=== PATIENT | female | born 1980 | race Caucasian/White ===

== ENCOUNTER 2016-07-24 11:43 | Emergency (ER) | payer OTHER ==
[2016-07-24 11:52] VITALS: BP 115/85; PULSE 86; TEMP 98; BMI 25.0
--- NOTE | 2016-07-24 12:42 | PDOC ---
History of Present Illness - General Chief Complaint: Pain, Acute Stated Complaint: LOWER BACK PAIN, POSSIBLE Time Seen by Provider: 07/24/16 12:30 History Source: Patient Exam Limitations: No Limitations - History of Present Illness Travel History: No Initial Comments: 07/24/16 12:30 C/o low back and liower abd cramping and question about early . Patient states last normal menstrual cycle was in April, had 2 periods in May last one being June 05. 5 para 5, states to call test which was positive. Was concerned about this as patient has recently one year ago had extensive spinal surgery for disc fusions and was uncertain as to safety of a postoperatively. Patient denies fever, nausea vomiting diarrhea constipation, denies vaginal drainage or bleeding. States has some frequency with urine, and also uncertain as to possible UTI. 07/24/16 13:37 Timing/Duration: reports: getting worse, changing over time Quality: reports: mild, cramping, fullness Pain Radiation: reports: no radiation Activities at Onset: reports: none Past History - Travel Traveled outside of the country in the last 30 days: No Close contact w/someone who was outside of country & ill: No - Past Medical History Allergies/Adverse Reactions: Allergies Allergy/AdvReac Type Severity Reaction Status Date / Time No Known Allergies Allergy Verified 07/24/16 11:47 Home Medications: Ambulatory Orders NK [No Known Home Medication] 07/24/16 Other medical history: denies - Psycho/Social/Smoking Cessation Hx Suicidal Ideation: No Smoking History: Never smoked Review of Systems - Review of Systems Able to Perform ROS?: Yes Is the patient limited [place] Irish proficient: Yes Constitutional: Yes: Symptoms Reported, See HPI, Malaise. No: Fever HEENTM: No: Symptoms Reported ABD/GI: Yes: Symptoms Reported, Abdominal cramping. No: Diarrhea, Poor Appetite , Poor Fluid Intake, Vomiting : Yes: Symptoms Reported, See HPI, Frequency. No: Burning, Dysuria Neurological: Yes: See HPI. No: Symptoms reported All Other Systems: Reviewed and Negative *Physical Exam - Vital Signs Last Vital Signs Temp Pulse Resp BP Pulse Ox 98.0 F 86 16 115/85 100 07/24/16 11:47 07/24/16 11:47 07/24/16 11:47 07/24/16 11:47 07/24/16 11:47 - Physical Exam General Appearance: Yes: Nourished, Appropriately Dressed, Apparent Distress, Mild Distress HEENT: positive: Normal ENT Inspection, TMs Normal Neck: positive: Supple. negative: Tender, Lymphadenopathy (R), Lymphadenopathy (L) Respiratory/Chest: positive: Lungs Clear, Normal Breath Sounds Cardiovascular: positive: Regular Rate Gastrointestinal/Abdominal: positive: Normal Bowel Sounds, Tender (mild suprapubic tenderness), Soft, Tenderness. negative: Distended, Guarding, Rebound Extremity: positive: Normal Capillary Refill, Normal Inspection Integumentary: positive: Normal Color, Dry, Warm, Pale Neurologic: positive: washery boss II-XII NML intact, Fully Oriented, Alert, Normal Mood/ Affect, Normal Response, Motor Strength 5/5 Progress Note - Progress Note Progress Note: Early , urinary tract without evidence of infection. We'll treat conservatively and send culture. Patient understands will be notified if urine culture comes back with positive result. Otherwise will follow-up with Dr. Fountain or DOPSTER for care *DC/Admit/Observation/Transfer Diagnosis at time of Disposition: Early stage of - Discharge Dispostion Disposition: HOME Condition at time of disposition: Stable Admit: No - Referrals Referrals: Adiel Fountain MD [Staff Physician] - - Patient Instructions Printed Discharge Instructions: DI for Abdominal Pain -- Early Additional Instructions: Rest, drink lots of fluids: Teas, water, soups Cori tiburcio, carbonated beverages for the bubbles May try peppermint teas Avoid heavy , spicy or fatty foods until symptoms have resolved Continue [id number] medications for symptomatic relief Tylenol for fever and pain Followup with private physician in one to 2 days as needed Return to emergency department for worsened symptoms, fevers, dehydration - Post Discharge Activity Work/School Note: Back to Work
[2016-07-24 12:53] LABS: URINE APPEARANCE SLCLOUDY; URINE BILIRUBIN NEGATIVE (NEGATIVE); URINE BLOOD NEGATIVE (NEGATIVE); URINE COLOR YELLOW; URINE GLUCOSE (UA) NEGATIVE (NEGATIVE); URINE KETONE NEGATIVE (NEGATIVE); URINE LEUK ESTERASE NEGATIVE (NEGATIVE); URINE NITRITE NEGATIVE (NEGATIVE); URINE PROTEIN NEGATIVE (NEGATIVE); URINE UROBILINOGEN NEGATIVE E.U./dl (0.2-1.0)
== END 2016-07-24 13:23 | disposition home or self-care (01) ==
LOC: JER 11:43
DX: O26.891 Other specified pregnancy related conditions, first trimester (principal); Z3A.01 Less than 8 weeks gestation of pregnancy
CPT/HCPCS: 81003; 84703; 87086; 99282-25

== ENCOUNTER 2017-03-12 08:35 | Inpatient (IN) | payer OTHER ==
[2017-03-12] MEDS ORDERED: AMPICILLIN - 100 ML IVPB ONE (09:00)
[2017-03-12 09:28] LABS: BASOPHIL 0.7 % (0-2.0); EOSINOPHIL 1.2 % (0-4.5); MCH 28.6 pg (25.7-33.7); MCHC 33.1 g/dl (32.0-36.0); MEAN CELL VOLUME 86.4 fl (80-96); NEUTROPHILS 71.7 % (42.8-82.8); PLATELET COUNT 295 K/MM3 (134-434); RDW 15.4 % (11.6-15.6); WHITE BLOOD COUNT 9.3 K/mm3 (4.0-10.0)
--- NOTE | 2017-03-12 09:40 | HP ---
Past Medical History - Admission Chief Complaint: Labor pain History of Present Illness: 36 yo @ 40 weeks gestation, admitted for labor pain. She denies any rupture of membrane or vaginal bleeding. History Source: Patient Limitations to Obtaining History: No Limitations - Past Medical History ...: 6 ...Para: 5 ...EDC by Jennifer: 03/12/17 - Past Surgical History Past Surgical History: Yes: None Hx Myomectomy: No Hx Transabdominal Cerclage: No - Smoking History Smoking history: Never smoked - Alcohol/Substance Use Hx Alcohol Use: No History of Substance Use: reports: None - Social History Usual Living Arrangement: Yes: With Spouse History of Recent Travel: No Home Medications - Allergies Allergies/Adverse Reactions: Allergies Allergy/AdvReac Type Severity Reaction Status Date / Time No Known Allergies Allergy Verified 03/10/17 09:21 - Home Medications Home Medications: Ambulatory Orders Vitamins (Sjr) - 1 tab PO DAILY 01/29/17 Family Disease History - Family Disease History Family History: Unremarkable Review of Systems - Review of Systems Constitutional: reports: No Symptoms Eyes: reports: No Symptoms HENT: reports: No Symptoms Neck: reports: No Symptoms Cardiovascular: reports: No Symptoms Respiratory: reports: No Symptoms Gastrointestinal: reports: No Symptoms Genitourinary: reports: Pain Breasts: reports: No Symptoms Reported Musculoskeletal: reports: No Symptoms Integumentary: reports: No Symptoms Neurological: reports: No Symptoms Endocrine: reports: No Symptoms Hematology/Lymphatic: reports: No Symptoms Psychiatric: reports: No Symptoms Pain Intensity: 9 Physical Exam - Maternity Constitutional: Yes: Well Nourished Eyes: Yes: WNL HENT: Yes: WNL Neck: Yes: Supple Cardiovascular: Yes: Regular Rate and Rhythm Lungs: Clear to auscultation Breast(s): Yes: WNL - Abdominal Exam/OB Number of Fetuses: Single Presentation: Vertex Contractions: Yes Regularity: Regular Intensity: Mod/Strong Decelerations: None - Vaginal Exam/OB Dilatation (cm): 6 Effacement (%): 100 Station: -1 - Physical Exam ...Motor Strength: WNL Psychiatric: Yes: Alert, Oriented - Labs Lab Results: CBC, BMP 03/12/17 09:15 Problem List - Problems (1) Pain during labor Code(s): O99.89 - OTH DISEASES AND CONDITIONS COMPL PREG/CHLDBRTH R52 - PAIN, UNSPECIFIED (2) Status post vaginal delivery Code(s): JFL6734 - Assessment/Plan Active labor Admit to L&D Anticipate
[2017-03-12] MEDS ORDERED: DEXTROSE 5%-LACTATED RINGERS 1,000 ML IV SCH ×2 (09:45)
[2017-03-12 09:46] LABS: INR 1.01 (0.82-1.09); PROTHROMBIN TIME (PATIENT) 11.1 SEC (9.98-11.88)
[2017-03-12 09:49] LABS: ACTIVATED PTT 27.2 SECONDS (26.9-34.4)
[2017-03-12 09:50] LABS: ANION GAP 10 (8-16); CALCIUM 9.1 mg/dL (8.5-10.1); CO2 23 mmol/L (21-32); CREATININE 0.6 mg/dL (0.55-1.02); GLUCOSE,RANDOM 85 mg/dL (74-106)
[2017-03-12 10:07] VITALS: BMI 45.1
[2017-03-12] MEDS ORDERED: METHYLERGONOVINE MALEATE 0.2 MG/1 ML AMP IM PRN (10:10)
[2017-03-12] MEDS ORDERED: BENZOCAINE 28 GM HEMORRHOIDAL OINTMENT TP PRN (10:10)
[2017-03-12] MEDS ORDERED: BENZOCAINE 20% 57 GM BOTTLE TP PRN (10:10)
[2017-03-12] MEDS ORDERED: WITCH HAZEL 50% (TUCKS) 40 PAD/JAR PAD TP PRN (10:10)
[2017-03-12] MEDS ORDERED: BISACODYL 10 MG SUPP.RECT RC PRN (10:10)
--- NOTE | 2017-03-12 10:14 | PN ---
Delivery - Delivery Vaginal Delivery: Spontaneous Episiotomy/Laceration: 2nd degree EBL (cc): 350 Delivery, Single - [place] Feeding Plan Initial Plan: Elected not to breastfeed exclusively throughout hospitalization Remarks - Remarks Remarks: Normal spontaneous vaginal delivery of a live boy over second degree laceration. Nose / Oropharynx suctioned @ perineum. Cord clamped and cut. Placenta expelled spontaneously intact. Laceration repaired with 2.0 Chromic.
[2017-03-12] MEDS ORDERED: D5W-LR W/ 20 UNITS OXYTOCIN 1,000 ML IV SCH (10:15)
[2017-03-12] MEDS: IBUPROFEN 600 MG TABLET (FP) PO PRN ×2 (11:00→18:34)
[2017-03-12] MEDS ORDERED: TUBERCULIN PPD 5 TU/0.1ML SYRINGE (IN PATIENT USE ONLY) ID ONE (11:00)
[2017-03-12] MEDS: ACETAMINOPHEN 325 MG TABLET (FP) PO PRN ×2 (11:10→18:34)
[2017-03-12] MEDS ORDERED: OXYTOCIN 20 UNITS in 0.9% NS 1,000 ML IV SCH (11:45)
[2017-03-12] MEDS: FERROUS SO4 325 MG TABLET (FP) PO SCH ×2 (13:40→18:34)
[2017-03-12] MEDS: AMPICILLIN - 100 ML IVPB SCH (22:16)
[2017-03-13] MEDS: IBUPROFEN 600 MG TABLET (FP) PO PRN ×3 (02:39→21:54)
[2017-03-13] MEDS: ACETAMINOPHEN 325 MG TABLET (FP) PO PRN ×3 (02:40→21:54)
[2017-03-13 08:30] LABS: BASOPHIL 0.6 % (0-2.0); EOSINOPHIL 1.9 % (0-4.5); MCHC 33.3 g/dl (32.0-36.0); MEAN CELL VOLUME 87.1 fl (80-96); MEAN PLT VOLUME 8.1 fl (7.5-11.1); NEUTROPHILS 66.6 % (42.8-82.8); PLATELET COUNT 277 K/MM3 (134-434); RDW 15.4 % (11.6-15.6); WHITE BLOOD COUNT 10.9 K/mm3 (4.0-10.0)
[2017-03-13] MEDS: FERROUS SO4 325 MG TABLET (FP) PO SCH ×3 (09:26→17:11)
[2017-03-13] MEDS: PRENATAL VITAMINS W/ FOLIC ACID TABLET (FP) PO SCH (09:26)
[2017-03-13] MEDS: AMPICILLIN - 100 ML IVPB SCH (11:01)
[2017-03-13] MEDS ORDERED: FLU VACC QS2017-18 36MOS UP/PF 60 MCG/0.5 ML SYRINGE IM ONE (12:00)
[2017-03-13] MEDS ORDERED: DIPHTH,PERTUSS(ACELL),TET 0.5 ML DISP.SYRIN IM ONE (12:00)
--- NOTE | 2017-03-13 21:06 | PN ---
Post Progress Note - Subjective Subjective: 36 yo Para 6, status post normal vaginal delivery, seen and evaluated. No complaints. Post Day: 1 Type of Delivery: Vital Signs: Vital Signs Temperature 97.9 F 03/13/17 10:00 Pulse Rate 92 H 03/13/17 10:00 Respiratory Rate 20 03/13/17 10:00 Blood Pressure 122/77 03/13/17 10:00 O2 Sat by Pulse Oximetry (%) Breast Exam: Yes: Soft Uterus: Yes: Fundus Firm Abdomen/GI: Yes: Abdomen soft Lochia: Yes: Rubra Lochia, amount: Moderate Extremities: Yes: Calves non-tender Perineum: Yes: Intact Activity: Ambulating - Labs Labs: CBC WBC 10.9 K/mm3 (4.0-10.0) H 03/13/17 08:00 RBC 3.55 M/mm3 (3.60-5.2) L 03/13/17 08:00 Hgb 10.3 GM/dL (10.7-15.3) L D 03/13/17 08:00 Hct 30.9 % (32.4-45.2) L 03/13/17 08:00 MCV 87.1 fl (80-96) 03/13/17 08:00 MCH 29.0 pg (25.7-33.7) 03/13/17 08:00 MCHC 33.3 g/dl (32.0-36.0) 03/13/17 08:00 RDW 15.4 % (11.6-15.6) 03/13/17 08:00 Plt Count 277 K/MM3 (134-434) 03/13/17 08:00 MPV 8.1 fl (7.5-11.1) 03/13/17 08:00 Neutrophils % 66.6 % (42.8-82.8) 03/13/17 08:00 Lymphocytes % 24.4 % (8-40) D 03/13/17 08:00 Monocytes % 6.5 % (3.8-10.2) 03/13/17 08:00 Eosinophils % 1.9 % (0-4.5) 03/13/17 08:00 Basophils % 0.6 % (0-2.0) 03/13/17 08:00 Problem List - Problems (1) Pain during labor Code(s): O99.89 - OTH DISEASES AND CONDITIONS COMPL PREG/CHLDBRTH R52 - PAIN, UNSPECIFIED (2) Status post vaginal delivery Code(s): TBL6991 - Assessment/Plan Status post vaginal delivery Stable Continue care
[2017-03-13] MEDS ORDERED: SENNOSIDES/DOCUSATE COMBO (SENNA PLUS) TABLET (UD) PO PRN (22:00)
[2017-03-14] MEDS: FERROUS SO4 325 MG TABLET (FP) PO SCH ×2 (08:00→12:01)
--- NOTE | 2017-03-14 08:30 | DS ---
Physical Exam-PRECISION INSTRUMENT AND TOOL MAKER Vital Signs: Vital Signs Temperature 99.2 F 03/13/17 22:00 Pulse Rate 80 03/13/17 22:00 Respiratory Rate 20 03/13/17 22:00 Blood Pressure 136/86 03/13/17 22:00 O2 Sat by Pulse Oximetry (%) Constitutional: Yes: Well Nourished, No Distress, Calm Eyes: Yes: WNL, Conjunctiva Clear, EOM Intact HENT: Yes: WNL, Atraumatic, Normocephalic Neck: Yes: WNL, Supple, Trachea Midline Cardiovascular: Yes: WNL, Regular Rate and Rhythm Respiratory: Yes: WNL, Regular, CTA Bilaterally Gastrointestinal: Yes: WNL ...Rectal Exam: Yes: WNL Renal/: Yes: WNL ....Post : Yes: Uterus firm, Uterus non-tender, Slight lochia rubra Breast(s): Yes: WNL Musculoskeletal: Yes: WNL Extremities: Yes: WNL Edema: No Integumentary: Yes: WNL Neurological: Yes: WNL, Alert, Oriented ...Motor Strength: WNL Psychiatric: Yes: WNL, Alert, Oriented Labs: CBC, BMP 03/13/17 08:00 03/12/17 09:15 Delivery - Delivery Vaginal Delivery: Spontaneous Type of Anesthesia: Local Episiotomy/Laceration: 2nd degree EBL (cc): 350 Delivery, Single - Stages of Labor Date 1st Stage Initiatied: 03/12/17 Time 1st Stage Initiated: 06:00 Date 2nd Stage Initiated: 03/12/17 Time 2nd Stage Initiated: 09:40 Date of Delivery: 03/12/17 Time of Delivery: 09:46 Time Placenta Delivered: 09:50 Placenta: Yes: Spontaneous - Condition of Drawer Waxer/Regional Project Manager Present: Yes Name: Marin Kinney Infant Gender: Male Weight: 9 lb 12 oz Position: Left, OA Total Hours ROM (Hrs/Mins): 46min - 1 Minute Total Score: 9 5 Minutes Total Score: 9 - Feeding Plan Initial Plan: Elected not to breastfeed exclusively throughout hospitalization Discharge Summary Reason For Visit: LABOR Current Active Problems Pain during labor (Acute) Status post vaginal delivery (Acute) Procedures: Principal: Condition: Good - Instructions Diet, Activity, Other Instructions: regular diet, follow up [facility] care 4 weeks Disposition: HOME - Home Medications Comprehensive Discharge Medication List: Ambulatory Orders Vitamins (Sjr) - 1 tab PO DAILY 01/29/17 Ibuprofen [Motrin -] 600 mg PO QID #28 tablet 03/14/17
[2017-03-14 09:48] VITALS: BP 119/65; PULSE 93; TEMP 97.9
[2017-03-14] MEDS: PRENATAL VITAMINS W/ FOLIC ACID TABLET (FP) PO SCH (10:17)
[2017-03-14] MEDS: IBUPROFEN 600 MG TABLET (FP) PO PRN (10:20)
[2017-03-14] MEDS: ACETAMINOPHEN 325 MG TABLET (FP) PO PRN (10:21)
== END 2017-03-14 15:40 | disposition home or self-care (01) | DRG 560 ==
LOC: JLDR 08:35 → J3W 11:46
PROVIDERS: ADMIT Obstetrics & Gynecology; ATTEND Obstetrics & Gynecology
PROC: 10E0XZZ Delivery of Products of Conception, External Approach (ICD-10-PCS; principal; 2017-03-12)
PROC: 0KQM0ZZ Repair Perineum Muscle, Open Approach (ICD-10-PCS; 2017-03-12)
DX: O48.0 Post-term pregnancy (principal); O70.1 Second degree perineal laceration during delivery; O26.893 Other specified pregnancy related conditions, third trimester; R76.11 Nonspecific reaction to tuberculin skin test without active tuberculosis; Z3A.40 40 weeks gestation of pregnancy; Z37.0 Single live birth
CPT/HCPCS: 36415; 59409; 71010-TC; 80048; 85025; 85610; 85730; 86593; 86850; 86900; 86901; 90686; 90715; G0008

== ENCOUNTER 2018-03-30 14:20 | Emergency (ER) | payer OTHER ==
[2018-03-30 14:27] VITALS: BP 122/66; PULSE 93; TEMP 97.7; BMI 42.9
--- NOTE | 2018-03-30 14:32 | PDOC ---
Rapid Medical Evaluation Chief Complaint: Urinary Problem Time Seen by Provider: 03/30/18 14:28 Medical Evaluation: Allergies Allergy/AdvReac Type Severity Reaction Status Date / Time No Known Allergies Allergy Verified 03/30/18 14:24 Vital Signs Temp Pulse Resp BP Pulse Ox 97.7 F 93 H 16 122/66 99 03/30/18 14:26 03/30/18 14:26 03/30/18 14:26 03/30/18 14:26 03/30/18 14:26 03/30/18 14:31 I have performed a brief in-person evaluation of this patient. The patient presents with a chief complaint of:22 weeks w/ ?dysuria, no vag bleed Pertinent physical exam findings:unremarkable I have ordered the following:ua/cx The patient will proceed to the ED for further evaluation. Discharge Disposition - Diagnosis Dysuria - Referrals - Patient Instructions - Post Discharge Activity
[2018-03-30 15:22] LABS: URINE APPEARANCE CLEAR; URINE BILIRUBIN NEGATIVE (<2.0 mg/dL); URINE COLOR STRAW; URINE GLUCOSE (UA) NEGATIVE (NEGATIVE); URINE KETONE NEGATIVE (NEGATIVE); URINE LEUK ESTERASE 2+ (NEGATIVE); URINE NITRITE NEGATIVE (NEGATIVE); URINE PROTEIN 1+ (NEGATIVE); URINE UROBILINOGEN NEGATIVE mg/dL (0.2-1.0)
[2018-03-30 15:34] LABS: EPI CELLS RARE /HPF (FEW)
--- NOTE | 2018-03-30 15:35 | PDOC ---
History of Present Illness - General Chief Complaint: Urinary Problem Stated Complaint: ABD PAIN (22 WKS ) Time Seen by Provider: 03/30/18 14:28 - History of Present Illness Initial Comments: 03/30/18 15:32 37-year-old 22 week gravid female presents for evaluation of dysuria times one day without associated symptoms. Past History - Past Medical History Allergies/Adverse Reactions: Allergies Allergy/AdvReac Type Severity Reaction Status Date / Time No Known Allergies Allergy Verified 03/30/18 14:24 Home Medications: Ambulatory Orders Vitamins (Sjr) - 1 tab PO DAILY 01/29/17 Nitrofurantoin Monohyd/M-Cryst [Macrobid -] 100 mg PO BID #14 capsule 03/30/18 Asthma: No Cancer: No Cardiac Disorders: No COPD: No Diabetes: No HTN: No Seizures: No Thyroid Disease: No - Reproductive History (#): 6 Para: 5 Spontaneous : 0 - Suicide/Smoking/Psychosocial Hx Smoking History: Never smoked Hx Alcohol Use: No Drug/Substance Use Hx: No Substance Use Type: None Hx Substance Use Treatment: No Review of Systems - Review of Systems : Yes: See HPI, Burning, Dysuria, Urgency All Other Systems: Reviewed and Negative *Physical Exam - Vital Signs Last Vital Signs Temp Pulse Resp BP Pulse Ox 97.7 F 93 H 16 122/66 99 03/30/18 14:26 03/30/18 14:26 03/30/18 14:26 03/30/18 14:26 03/30/18 14:26 - Physical Exam Comments: 03/30/18 15:33 HEAD: NC/AT EYES: Conjuntiva clear MS: Full ROM in all joints without edema NEUROLOGIC: No gross sensory or motor deficits, NVID SKIN: Normal color and temperature no lesions or rashes ED Treatment Course - ADDITIONAL ORDERS Additional order review: Laboratory Results 03/30/18 14:46 Urine Color Straw Urine Appearance Clear Urine pH 7.0 Ur Specific [place] 1.005 L Urine Protein 1+ H Urine Glucose (UA) Negative Urine Ketones Negative Urine Blood 2+ H Urine Nitrite Negative Urine Bilirubin Negative Urine Urobilinogen Negative Ur Leukocyte Esterase 2+ H *DC/Admit/Observation/Transfer Diagnosis at time of Disposition: Dysuria, UTI (urinary tract infection) during - Discharge Dispostion Disposition: HOME Condition at time of disposition: Stable Decision to Admit order: No - Prescriptions Prescriptions: Nitrofurantoin Monohyd/M-Cryst [Macrobid -] 100 mg PO BID #14 capsule - Referrals Referrals: Jeana Hairston MD [Staff Physician] - - Patient Instructions Printed Discharge Instructions: Urinary Tract Infection Additional Instructions: Please take the antibiotics as directed return to the emergency room should symptoms worsen or go unresolved and follow-up with your mlt and shirring machine operator in one to 2 days for further evaluation and treatment options. - Post Discharge Activity
== END 2018-03-30 15:37 | disposition home or self-care (01) ==
LOC: JERFT 14:20
DX: O23.42 Unspecified infection of urinary tract in pregnancy, second trimester (principal); Z3A.22 22 weeks gestation of pregnancy
CPT/HCPCS: 81003; 81015; 87086; 99281-25

== ENCOUNTER 2018-06-06 10:24 | Emergency (ER) | payer OTHER ==
[2018-06-06 12:10] VITALS: BP 116/62; PULSE 94; TEMP 97; BMI 43.1
--- NOTE | 2018-06-06 12:11 | PDOC ---
History of Present Illness - General Chief Complaint: Hemorrhoids Stated Complaint: PAIN Time Seen by Provider: 06/06/18 12:10 History Source: Patient - History of Present Illness Initial Comments: 06/06/18 12:27 38 year old 35 weeks female c/o rectal swelling/ hemorrhoid and dysuria x 3 days. denies frequency, oliguria, fever/ chills. Patient seen by L& D and cleared for discharge. denies fever/ chills. NVD, abdominal pain. 06/06/18 12:48 Past History - Past Medical History Allergies/Adverse Reactions: Allergies Allergy/AdvReac Type Severity Reaction Status Date / Time No Known Allergies Allergy Verified 06/06/18 12:10 Home Medications: Ambulatory Orders Vitamins (Sjr) - 1 tab PO DAILY 01/29/17 Cephalexin Monohydrate [Keflex -] 500 mg PO BID #20 capsule 06/06/18 Docusate Sodium [Colace] 100 mg PO BID PRN #30 capsule 06/06/18 Ferrous Sulfate [Iron] 325 mg PO TID 06/06/18 Hydrocortisone Acetate [Anusol Hc Suppository -] 25 mg RC BID PRN #28 supp.rect 06/06/18 Witch Rubi 50% (Tucks) [Tucks Witch Rubi Pads] 1 pad TP TID PRN #30 pad Asthma: No Cancer: No Cardiac Disorders: No COPD: No Diabetes: No HTN: No Seizures: No Thyroid Disease: No - Reproductive History (#): 6 Para: 5 Spontaneous : 0 - Suicide/Smoking/Psychosocial Hx Smoking History: Never smoked Hx Alcohol Use: No Drug/Substance Use Hx: No Substance Use Type: None Hx Substance Use Treatment: No Review of Systems - Review of Systems Able to Perform ROS?: Yes Is the patient limited Belarusian proficient: No Constitutional: No: Symptoms Reported, See HPI, Chills, Diaphoresis, Fever, Loss of Appetite, Malaise, Night Sweats, Weakness, Weight Stable, Unintentional Wgt. Loss, Unexplained wgt Loss, Other ABD/GI: Yes: Other : Yes: Other (hemorrhoids) *Physical Exam - Vital Signs Last Vital Signs Temp Pulse Resp BP Pulse Ox 97 F L 94 H 18 116/62 99 06/06/18 12:03 06/06/18 12:03 06/06/18 12:03 06/06/18 12:03 06/06/18 12:03 - Physical Exam Female Pelvic Exam: positive: normal external exam. negative: Bartholin mass, vaginal bleeding Gastrointestinal/Abdominal: positive: Other (gravid abdomen. no tenderness, + 3 external hemorrhoids, no bleeding or fissure noted) Moderate Sedation - Procedure Monitoring Vital Signs: Procedure Monitoring Vital Signs Temperature 97 F L 06/06/18 12:03 Pulse Rate 94 H 06/06/18 12:03 Respiratory Rate 18 06/06/18 12:03 Blood Pressure 116/62 06/06/18 12:03 O2 Sat by Pulse Oximetry (%) 99 06/06/18 12:03 Progress Note - Progress Note Progress Note: A: HEmorrhoids; UTI P: Medical Decision Making - Medical Decision Making 06/06/18 12:[address] Lopez + external hemorrhoids. advised to stool softerners ( colace) and anusol. Category C, Lidocaine applied to rectal area for immediate plain control 06/06/18 13:12 pain improved after lidocaine tp application. UA +nitrite will treat since symptomatic *DC/Admit/Observation/Transfer Diagnosis at time of Disposition: Hemorrhoids during in third trimester UTI (urinary tract infection) Qualifiers: Urinary tract infection type: acute cystitis Hematuria presence: without hematuria Qualified Code(s): N30.00 - Acute cystitis without hematuria - Discharge Dispostion Disposition: HOME - Prescriptions Prescriptions: Cephalexin Monohydrate [Keflex -] 500 mg PO BID #20 capsule Docusate Sodium [Colace] 100 mg PO BID PRN #30 capsule PRN Reason: Constipation Hydrocortisone Acetate [Anusol Hc Suppository -] 25 mg RC BID PRN #28 supp.rect PRN Reason: hemorrhoids Witch Rubi 50% (Tucks) [Tucks Witch Rubi Pads] 1 pad TP TID PRN #30 pad PRN Reason: rectal pain - Referrals - Patient Instructions Printed Discharge Instructions: DI for Hemorrhoids, DI for Urinary Tract Infection (UTI) Additional Instructions: drink plenty of fluids take medications as prescribed - Post Discharge Activity Forms/Work/School Notes: Back to Work
[2018-06-06] MEDS ORDERED: LIDOCAINE HCL 2% JELLY 10 ML CARTRIDGE PR ONE (12:34)
[2018-06-06] MEDS ORDERED: LIDOCAINE HCL 2% JELLY 10 ML CARTRIDGE ONE (12:36)
[2018-06-06] MEDS ORDERED: HYDROCORTISONE ACETATE 25 MG/SUPP.RECT PR ONE (12:41)
[2018-06-06 12:50] LABS: URINE APPEARANCE SLCLOUDY; URINE BILIRUBIN NEGATIVE (<2.0 mg/dL); URINE COLOR YELLOW; URINE GLUCOSE (UA) NEGATIVE (NEGATIVE); URINE KETONE NEGATIVE (NEGATIVE); URINE LEUK ESTERASE NEGATIVE (NEGATIVE); URINE NITRITE POSITIVE (NEGATIVE); URINE PROTEIN 2+ (NEGATIVE); URINE UROBILINOGEN NEGATIVE mg/dL (0.2-1.0)
[2018-06-06 13:13] LABS: EPI CELLS FEW /HPF (FEW); URINE BACTERIA RARE /hpf (NONE SEEN); URINE HYALINE CAST 2 /lpf; URINE MUCUS MANY
== END 2018-06-06 13:18 | disposition home or self-care (01) ==
LOC: JERFT 10:24
DX: O26.893 Other specified pregnancy related conditions, third trimester (principal); O23.33 Infections of other parts of urinary tract in pregnancy, third trimester; O22.43 Hemorrhoids in pregnancy, third trimester; Z3A.35 35 weeks gestation of pregnancy
CPT/HCPCS: 81003; 81015; 87086; 99281-25

== ENCOUNTER 2018-06-25 22:42 | Emergency (ER) | payer OTHER ==
[2018-06-25 22:47] VITALS: BMI 27.4
[2018-06-25] MEDS ORDERED: SODIUM CHLORIDE 1,000 ML IV STA (22:53)
--- NOTE | 2018-06-25 22:58 | PDOC ---
History of Present Illness - General Chief Complaint: Nausea/Vomiting Stated Complaint: VOMITING/DIARRHEA/35 WKS Time Seen by Provider: 06/25/18 22:47 History Source: Patient - History of Present Illness Initial Comments: 06/25/18 23:19 38 year old female with NVD x 1 day with intermittent abdominal cramping radiating down to the pelvis. patient is 35 weeks , denies vaginal bleeding, vaginal discharge. patient reports + sick contacts with gastroenteritis symptoms at home. Timing/Duration: reports: constant Past History - Past Medical History Allergies/Adverse Reactions: Allergies Allergy/AdvReac Type Severity Reaction Status Date / Time No Known Allergies Allergy Verified 06/26/18 01:02 Home Medications: Ambulatory Orders Ferrous Sulfate [Feosol] 325 mg PO DAILY 06/26/18 Vitamins (Sjr) - 1 tab PO DAILY 06/26/18 Asthma: No Cancer: No Cardiac Disorders: No COPD: No Diabetes: No HTN: No Seizures: No Thyroid Disease: No - Reproductive History (#): 6 Para: 5 Spontaneous : 0 - Suicide/Smoking/Psychosocial Hx Smoking History: Never smoked Have you smoked in the past 12 months: No Information on smoking cessation initiated: No Hx Alcohol Use: No Drug/Substance Use Hx: No Substance Use Type: None Hx Substance Use Treatment: No Review of Systems - Review of Systems Able to Perform ROS?: Yes Is the patient limited Urdu proficient: No Constitutional: No: Symptoms Reported, See HPI, Chills, Diaphoresis, Fever, Loss of Appetite, Malaise, Night Sweats, Weakness, Weight Stable, Unintentional Wgt. Loss, Unexplained wgt Loss, Other ABD/GI: Yes: Nausea, Vomiting, Abdominal cramping : No: Symptoms Reported, See HPI, Burning, Dysuria, Discharge, Frequency, Flank Pain, Hematuria, Incontinence, Pain, Urgency, Testicular Mass, Testicular Swelling, Lesions, Testicular Pain, Other *Physical Exam - Vital Signs Last Vital Signs Temp Pulse Resp BP Pulse Ox 97.3 F L 101 H 22 H 119/89 100 06/25/18 22:44 06/25/18 22:44 06/25/18 22:44 06/25/18 22:44 06/25/18 22:44 - Physical Exam General Appearance: Yes: Appropriately Dressed Cardiovascular: positive: Tachycardia Gastrointestinal/Abdominal: positive: Normal Bowel Sounds, Tender (epigastric tenderness, gravid abdomen), Soft Extremity: positive: Normal Capillary Refill, Normal Inspection, Normal Range of Motion Integumentary: positive: Dry, Warm, Pale, Other (dry lips) Neurologic: positive: Fully Oriented, Alert, Normal Mood/Affect Moderate Sedation - Procedure Monitoring Vital Signs: Procedure Monitoring Vital Signs Temperature 97.3 F L 06/25/18 22:44 Pulse Rate 101 H 06/25/18 22:44 Respiratory Rate 22 H 06/25/18 22:44 Blood Pressure 119/89 06/25/18 22:44 O2 Sat by Pulse Oximetry (%) 100 06/25/18 22:44 ED Treatment Course - LABORATORY CBC & Chemistry Diagram: 06/25/18 23:05 06/25/18 23:05 Medical Decision Making - Medical Decision Making 06/25/18 23:26 NVD liekly gastroenteritis. patient send to L&D for evaluation. IVF and zofran given in the ED 06/26/18 01:08 patient now feels better. cleared by L&D for discharge. will d/c home. 06/26/18 01:22 patient PO water. reports feeling better, will d/c home *DC/Admit/Observation/Transfer Diagnosis at time of Disposition: Gastroenteritis Abdominal pain during Qualifiers: Trimester: third trimester Qualified Code(s): O26.893 - Other specified related conditions, third trimester - Discharge Dispostion Disposition: HOME - Referrals - Patient Instructions Printed Discharge Instructions: DI for Vomiting -- Adult Additional Instructions: drink plenty of fluids start a BRAT (bananas, rice apples toast) diet. follow up with your doctor as soon as possible. return to the ER if symptoms worsen. - Post Discharge Activity
[2018-06-25] MEDS ORDERED: ONDANSETRON 4 MG/2 ML VIAL IVPUSH ONE (23:00)
[2018-06-25] MEDS ORDERED: ONDANSETRON 4 MG/2 ML VIAL ONE (23:17)
[2018-06-25 23:25] LABS: BASO % 0.3 % (0-2.0); EOS % 1.5 % (0-4.5); HEMATOCRIT 31.5 % (32.4-45.2); HEMOGLOBIN 10.9 GM/dL (10.7-15.3); LYMPH % 13.9 % (8-40); MCH 29.8 pg (25.7-33.7); MCHC 34.6 g/dl (32.0-36.0); MEAN CELL VOLUME 86.2 fl (80-96); MEAN PLT VOLUME 7.9 fl (7.5-11.1); MONO % 5.5 % (3.8-10.2); NEUT % 78.8 % (42.8-82.8); PLATELET COUNT 306 K/MM3 (134-434); RBC 3.65 M/mm3 (3.60-5.2); RDW 15.3 % (11.6-15.6)
[2018-06-26 00:01] LABS: ALBUMIN 2.6 g/dl (3.4-5.0); ALK PHOS 98 U/L (45-117); ANION GAP 7 MMOL/L (8-16); BILIRUBIN,TOTAL 0.8 mg/dL (0.2-1); BLOOD UREA NITROGEN 9 mg/dL (7-18); CHLORIDE 102 mmol/L (98-107); CO2 25 mmol/L (21-32); CREATININE 0.6 mg/dL (0.55-1.3); GLUCOSE,RANDOM 87 mg/dL (74-106); LIPASE 141 U/L (73-393); POTASSIUM 4.1 mmol/L (3.5-5.1); SGOT/AST 10 U/L (15-37); SGPT/ALT 10 U/L (13-61); SODIUM 134 mmol/L (136-145); TOT PROT 6.8 g/dl (6.4-8.2)
[2018-06-26 00:53] VITALS: BP 120/68; PULSE 91; TEMP 98
== END 2018-06-26 01:37 | disposition home or self-care (01) ==
LOC: JER 22:42
PROC: 3E0337Z Introduction of Electrolytic and Water Balance Substance into Peripheral Vein, Percutaneous Approach (ICD-10-PCS; principal; 2018-06-25)
PROC: 3E033GC Introduction of Other Therapeutic Substance into Peripheral Vein, Percutaneous Approach (ICD-10-PCS; 2018-06-25)
DX: O26.893 Other specified pregnancy related conditions, third trimester (principal); O99.613 Diseases of the digestive system complicating pregnancy, third trimester; K52.9 Noninfective gastroenteritis and colitis, unspecified; Z3A.35 35 weeks gestation of pregnancy
CPT/HCPCS: 36415; 80053; 83690; 85025; 99281-25; J7030

== ENCOUNTER 2018-07-17 09:30 | Inpatient (IN) | payer OTHER ==
[2018-07-17] MEDS ORDERED: BUTORPHANOL TARTRATE 1 MG/ML VIAL IVPB ONE (10:26)
[2018-07-17] MEDS ORDERED: PROMETHAZINE HCL 25 MG/1 ML VIAL IVPUSH ONE (10:26)
[2018-07-17] MEDS ORDERED: DEXTROSE 5%-LACTATED RINGERS 1,000 ML IV SCH (10:30)
[2018-07-17 10:33] VITALS: BMI 44.7
--- NOTE | 2018-07-17 10:34 | HP ---
Past Medical History - Admission Chief Complaint: Labor pain History of Present Illness: 38 yo @ 38.4 weeks gestation, EDC 07/27/18, admitted for labor pain. Upon admission she was 5cm dilated. History Source: Patient Limitations to Obtaining History: No Limitations - Past Medical History ...: 7 ...Para: 6 ...EDC by Jennifer: 07/27/18 - Past Surgical History Past Surgical History: Yes: None Hx Myomectomy: No Hx Transabdominal Cerclage: No - Smoking History Smoking history: Never smoked Have you smoked in the past 12 months: No - Alcohol/Substance Use Hx Alcohol Use: No History of Substance Use: reports: None - Social History History of Recent Travel: No Home Medications - Allergies Allergies/Adverse Reactions: Allergies Allergy/AdvReac Type Severity Reaction Status Date / Time No Known Allergies Allergy Verified 06/26/18 01:02 - Home Medications Home Medications: Ambulatory Orders Ferrous Sulfate [Feosol] 325 mg PO DAILY 06/26/18 Vitamins (Sjr) - 1 tab PO DAILY 06/26/18 Family Disease History - Family Disease History Family History: Unremarkable Review of Systems - Review of Systems Constitutional: reports: No Symptoms Eyes: reports: No Symptoms HENT: reports: No Symptoms Neck: reports: No Symptoms Cardiovascular: reports: No Symptoms Respiratory: reports: No Symptoms Gastrointestinal: reports: No Symptoms Genitourinary: reports: Pain Breasts: reports: No Symptoms Reported Musculoskeletal: reports: No Symptoms Integumentary: reports: No Symptoms Neurological: reports: No Symptoms Endocrine: reports: No Symptoms Hematology/Lymphatic: reports: No Symptoms Psychiatric: reports: No Symptoms Pain Intensity: 7 Physical Exam - Maternity Constitutional: Yes: Well Nourished Eyes: Yes: Conjunctiva Clear HENT: Yes: Atraumatic Neck: Yes: Supple Cardiovascular: Yes: Regular Rate and Rhythm Lungs: Clear to auscultation - Abdominal Exam/OB Number of Fetuses: Single Presentation: Vertex - Vaginal Exam/OB Dilatation (cm): 5 Effacement (%): 80 Presentation: Vertex/Position Station: -2 - Physical Exam Integumentary: Yes: WNL ...Motor Strength: WNL Psychiatric: Yes: Alert, Oriented Problem List - Problems (1) Pain during labor Code(s): O99.89 - OTH DISEASES AND CONDITIONS COMPL PREG/CHLDBRTH; R52 - PAIN, UNSPECIFIED Assessment/Plan 38 weeks gestation Active labor Analgesia as needed Anticipate
[2018-07-17 10:39] LABS: BASO % 0.5 % (0-2.0); EOS % 1.5 % (0-4.5); HEMATOCRIT 31.4 % (32.4-45.2); HEMOGLOBIN 11.1 GM/dL (10.7-15.3); LYMPH % 16.7 % (8-40); MCH 30.6 pg (25.7-33.7); MCHC 35.2 g/dl (32.0-36.0); MEAN PLT VOLUME 8.1 fl (7.5-11.1); NEUT % 75.3 % (42.8-82.8); PLATELET COUNT 289 K/MM3 (134-434); RBC 3.61 M/mm3 (3.60-5.2); RDW 15.1 % (11.6-15.6); WHITE BLOOD COUNT 8.1 K/mm3 (4.0-10.0)
[2018-07-17] MEDS ORDERED: OXYTOCIN 20 UNITS in 0.9% NS 20 UNIT/1,000 ML INFUS.BAG IV ONE (10:42)
[2018-07-17 10:55] LABS: INR 0.95 (0.83-1.09); PROTHROMBIN TIME (PATIENT) 11.2 SEC (9.7-13.0)
[2018-07-17 11:10] LABS: GAMMA GLUTAMYL TRANSPEPTIDASE 28 U/L (5-85); SGOT/AST 11 U/L (15-37); SGPT/ALT 11 U/L (13-61)
[2018-07-17 11:23] LABS: ANION GAP 9 MMOL/L (8-16); BLOOD UREA NITROGEN 13 mg/dL (7-18); CHLORIDE 104 mmol/L (98-107); CO2 22 mmol/L (21-32); CREATININE 0.9 mg/dL (0.55-1.3); GLUCOSE,RANDOM 88 mg/dL (74-106); POTASSIUM 4.4 mmol/L (3.5-5.1); SODIUM 135 mmol/L (136-145); URIC ACID 5.2 mg/dL (2.6-7.2)
[2018-07-17] MEDS ORDERED: OXYTOCIN 30 UNITS in 0.9% NS 30 UNIT/500 ML INFUS.BAG IVPB ONE (11:26)
[2018-07-17] MEDS ORDERED: BENZOCAINE 28 GM HEMORRHOIDAL OINTMENT TP PRN (11:55)
[2018-07-17] MEDS ORDERED: BISACODYL 10 MG SUPP.RECT RC PRN (11:55)
[2018-07-17] MEDS ORDERED: WITCH HAZEL 50% (TUCKS) 40 PAD/JAR PAD TP PRN (11:55)
[2018-07-17] MEDS ORDERED: BENZOCAINE 20% 57 GM BOTTLE TP PRN (11:55)
[2018-07-17] MEDS ORDERED: METHYLERGONOVINE MALEATE 0.2 MG/1 ML AMP IM PRN (11:55)
[2018-07-17] MEDS ORDERED: OXYTOCIN 20 UNITS in 0.9% NS 20 UNIT/1,000 ML INFUS.BAG IV SCH (12:00)
--- NOTE | 2018-07-17 12:00 | PN ---
Delivery - Delivery Vaginal Delivery: Spontaneous Episiotomy/Laceration: 1st degree EBL (cc): 300 Delivery, Single - Stages of Labor Date 1st Stage Initiatied: 07/17/18 Time 1st Stage Initiated: 08:00 Date 2nd Stage Initiated: 07/17/18 Date of Delivery: 07/17/18 - Feeding Plan Initial Plan: Elected not to breastfeed exclusively throughout hospitalization Remarks - Remarks Remarks: Normal spontaneous vaginal delivery of a live infant girl over first degree laceration. Nose / Oropharynx suctioned @ perineum. Cord clamped and cut. Baby handed to nurse. Placenta expelled spontaneously intact.
[2018-07-17] MEDS: IBUPROFEN 600 MG TABLET (FP) PO PRN (17:44)
[2018-07-17] MEDS: ACETAMINOPHEN 325 MG TABLET (FP) PO PRN (17:44)
[2018-07-17] MEDS: FERROUS SO4 325 MG TABLET (FP) PO SCH (17:44)
[2018-07-18] MEDS: IBUPROFEN 600 MG TABLET (FP) PO PRN (06:33)
[2018-07-18] MEDS: ACETAMINOPHEN 325 MG TABLET (FP) PO PRN (06:33)
--- NOTE | 2018-07-18 07:56 | PN ---
Post Progress Note - Subjective Subjective: 38 yo Para 7 status post , seen and evaluated, doing well. Post Day: 1 Type of Delivery: Vital Signs: Vital Signs Temperature 97.8 F 07/18/18 06:00 Pulse Rate 78 07/18/18 06:00 Respiratory Rate 20 07/18/18 06:00 Blood Pressure 132/77 07/18/18 06:00 O2 Sat by Pulse Oximetry (%) 99 07/17/18 12:45 Breast Exam: Yes: Soft Uterus: Yes: Fundus Firm Abdomen/GI: Yes: Abdomen soft, Tolerating PO Lochia: Yes: Rubra Lochia, amount: Heavy Extremities: Yes: Calves non-tender Perineum: Yes: Intact Activity: Ambulating - Labs Labs: CBC WBC 8.1 K/mm3 (4.0-10.0) 07/17/18 10:20 RBC 3.61 M/mm3 (3.60-5.2) 07/17/18 10:20 Hgb 11.1 GM/dL (10.7-15.3) 07/17/18 10:20 Hct 31.4 % (32.4-45.2) L 07/17/18 10:20 MCV 87.0 fl (80-96) 07/17/18 10:20 MCH 30.6 pg (25.7-33.7) 07/17/18 10:20 MCHC 35.2 g/dl (32.0-36.0) 07/17/18 10:20 RDW 15.1 % (11.6-15.6) 07/17/18 10:20 Plt Count 289 K/MM3 (134-434) 07/17/18 10:20 MPV 8.1 fl (7.5-11.1) 07/17/18 10:20 Absolute Neuts (auto) 6.1 K/mm3 (1.5-8.0) 07/17/18 10:20 Neutrophils % 75.3 % (42.8-82.8) 07/17/18 10:20 Lymphocytes % 16.7 % (8-40) D 07/17/18 10:20 Monocytes % 6.0 % (3.8-10.2) 07/17/18 10:20 Eosinophils % 1.5 % (0-4.5) 07/17/18 10:20 Basophils % 0.5 % (0-2.0) 07/17/18 10:20 Nucleated RBC % 0 % (0-0) 07/17/18 10:20 Retic Count 1.01 % (0.5-1.5) D 07/17/18 10:20 Haptoglobin 191 mg/dL (34-200) 07/17/18 10:20 Problem List - Problems (1) Pain during labor Code(s): O99.89 - OTH DISEASES AND CONDITIONS COMPL PREG/CHLDBRTH; R52 - PAIN, UNSPECIFIED (2) Status post normal vaginal delivery Code(s): [id number] -
[2018-07-18 08:59] LABS: BASO % 0.6 % (0-2.0); EOS % 2.8 % (0-4.5); HEMATOCRIT 30.1 % (32.4-45.2); HEMOGLOBIN 10.4 GM/dL (10.7-15.3); MCH 30.4 pg (25.7-33.7); MCHC 34.5 g/dl (32.0-36.0); MEAN CELL VOLUME 88.1 fl (80-96); MEAN PLT VOLUME 8.2 fl (7.5-11.1); MONO % 6.2 % (3.8-10.2); NEUT % 71.4 % (42.8-82.8); PLATELET COUNT 260 K/MM3 (134-434); RBC 3.42 M/mm3 (3.60-5.2); RDW 15.1 % (11.6-15.6); WHITE BLOOD COUNT 9.6 K/mm3 (4.0-10.0)
[2018-07-18] MEDS: FERROUS SO4 325 MG TABLET (FP) PO SCH ×2 (10:03→18:26)
[2018-07-18] MEDS: PRENATAL VITAMINS W/ FOLIC ACID TABLET (FP) PO SCH (10:03)
[2018-07-18 21:45] VITALS: PULSE 79
[2018-07-18] MEDS ORDERED: SENNOSIDES/DOCUSATE COMBO (SENNA PLUS) TABLET (UD) PO PRN (22:00)
[2018-07-19] MEDS: FERROUS SO4 325 MG TABLET (FP) PO SCH (08:29)
[2018-07-19] MEDS: ACETAMINOPHEN 325 MG TABLET (FP) PO PRN (08:29)
[2018-07-19] MEDS: IBUPROFEN 600 MG TABLET (FP) PO PRN (08:30)
[2018-07-19] MEDS: PRENATAL VITAMINS W/ FOLIC ACID TABLET (FP) PO SCH (09:35)
--- NOTE | 2018-07-19 12:19 | DS ---
Physical Exam-MANAGEMENT REP Vital Signs: Vital Signs Temperature 98.3 F 07/18/18 21:44 Pulse Rate 79 07/18/18 21:44 Respiratory Rate 20 07/18/18 21:44 Blood Pressure 121/66 07/18/18 21:44 O2 Sat by Pulse Oximetry (%) 99 07/17/18 12:45 Constitutional: Yes: Well Nourished Eyes: Yes: Conjunctiva Clear HENT: Yes: Atraumatic Neck: Yes: Supple Cardiovascular: Yes: Regular Rate and Rhythm Respiratory: Yes: Regular Gastrointestinal: Yes: Normal Bowel Sounds External Genitalia: Yes: Normal Vaginal Exam: Yes: Normal Cervix: Yes: Normal Uterus: Yes: Firm ....Post : Yes: Uterus firm, Moderate lochia serosa Neurological: Yes: Alert, Oriented Psychiatric: Yes: Alert, Oriented Labs: CBC, BMP 07/18/18 08:00 07/17/18 10:20 Delivery - Delivery Vaginal Delivery: Spontaneous Type of Anesthesia: None Episiotomy/Laceration: None EBL (cc): 250 Delivery, Single - Stages of Labor Date 1st Stage Initiatied: 07/17/18 Time 1st Stage Initiated: 08:00 Date 2nd Stage Initiated: 07/17/18 Time 2nd Stage Initiated: 11:30 Date of Delivery: 07/17/18 Time of Delivery: 11:48 Time Placenta Delivered: 11:55 - Condition of Infant Public Health Worker/Inspection Manager Present: No Infant Gender: Female Weight: 7 lb 6 oz Position: Left, OA Total Hours ROM (Hrs/Mins): 1 HR-18 MINS - 1 Minute Total Score: 9 5 Minutes Total Score: 9 - Davis Feeding Plan Initial Plan: Elected not to breastfeed exclusively throughout hospitalization Discharge Summary Reason For Visit: LABOR ADMISSION Current Active Problems Pain during labor (Acute) Status post normal vaginal delivery (Acute) Procedures: Principal: Normal spontaneous vaginal delivery Hospital Course: Routine care Condition: Good - Instructions Diet, Activity, Other Instructions: Regular diet No douching, no sexual intercourse x 6 weeks F/U in clinic in 6 weeks Disposition: HOME - Home Medications Comprehensive Discharge Medication List: Ambulatory Orders Ferrous Sulfate [Feosol] 325 mg PO DAILY 06/26/18 Vitamins (Sjr) - 1 tab PO DAILY 06/26/18
[2018-07-19 12:40] VITALS: BP 133/73; TEMP 98.2
== END 2018-07-19 13:00 | disposition home or self-care (01) | DRG 560 ==
LOC: JLDR 09:30 → J3W 13:26
PROVIDERS: ADMIT Obstetrics & Gynecology; ATTEND Obstetrics & Gynecology
PROC: 10E0XZZ Delivery of Products of Conception, External Approach (ICD-10-PCS; principal; 2018-07-17)
PROC: 0W8NXZZ Division of Female Perineum, External Approach (ICD-10-PCS; 2018-07-17)
PROC: 0HQ9XZZ Repair Perineum Skin, External Approach (ICD-10-PCS; 2018-07-17)
DX: O70.0 First degree perineal laceration during delivery (principal); Z3A.38 38 weeks gestation of pregnancy; Z37.0 Single live birth
CPT/HCPCS: 36415; 59409; 80048; 82977; 83010; 84450; 84460; 84550; 85025; 85044; 85610; 85730; 86593; 86850; 86900; 86901

== ENCOUNTER 2018-07-27 15:54 | Emergency (ER) | payer OTHER ==
--- NOTE | 2018-07-27 16:04 | PDOC ---
Rapid Medical Evaluation Chief Complaint: Urinary Problem Time Seen by Provider: 07/27/18 16:03 Medical Evaluation: Allergies Allergy/AdvReac Type Severity Reaction Status Date / Time No Known Allergies Allergy Verified 07/27/18 16:02 07/27/18 16:03 I performed a brief in-person evaluation of this patient. Chief complaint: Dysuria and lower abd pain, s/p vag delivery 8 days ago Pertinent physical exam findings: Suprapubic tenderness, bilat flank tenderness (R>L) I have ordered the following: UA/culture Patient will proceed to the ED for further evaluation. Discharge Disposition - Diagnosis Dysuria - Referrals - Patient Instructions - Post Discharge Activity
[2018-07-27 16:05] VITALS: BP 139/79; PULSE 85; TEMP 98.5; BMI 41.2
[2018-07-27 16:27] LABS: URINE APPEARANCE SLCLOUDY; URINE BILIRUBIN NEGATIVE (<2.0 mg/dL); URINE COLOR YELLOW; URINE GLUCOSE (UA) NEGATIVE (NEGATIVE); URINE KETONE NEGATIVE (NEGATIVE); URINE LEUK ESTERASE NEGATIVE (NEGATIVE); URINE NITRITE NEGATIVE (NEGATIVE); URINE PROTEIN 2+ (NEGATIVE); URINE UROBILINOGEN NEGATIVE mg/dL (0.2-1.0)
[2018-07-27 16:47] LABS: EPI CELLS RARE /HPF (FEW); URINE HYALINE CAST 1 /lpf; URINE MUCUS RARE
--- NOTE | 2018-07-27 16:51 | PDOC ---
History of Present Illness - General Chief Complaint: Urinary Problem Stated Complaint: ABD PAIN Time Seen by Provider: 07/27/18 16:03 History Source: Patient Exam Limitations: No Limitations Past History - Past Medical History Allergies/Adverse Reactions: Allergies Allergy/AdvReac Type Severity Reaction Status Date / Time No Known Allergies Allergy Verified 07/27/18 16:02 Home Medications: Ambulatory Orders Ferrous Sulfate [Feosol] 325 mg PO DAILY 06/26/18 Vitamins (Sjr) - 1 tab PO DAILY 06/26/18 Asthma: No Cancer: No Cardiac Disorders: No COPD: No Diabetes: No HTN: No Seizures: No Thyroid Disease: No - Reproductive History (#): 6 Para: 5 Spontaneous : 0 - Suicide/Smoking/Psychosocial Hx Smoking History: Never smoked Have you smoked in the past 12 months: No Hx Alcohol Use: No Drug/Substance Use Hx: No Substance Use Type: None Hx Substance Use Treatment: No *Physical Exam - Vital Signs Last Vital Signs Temp Pulse Resp BP Pulse Ox 98.5 F 85 18 139/79 100 07/27/18 16:03 07/27/18 16:03 07/27/18 16:03 07/27/18 16:03 07/27/18 16:03 - Physical Exam General Appearance: No: Apparent Distress Respiratory/Chest: positive: Lungs Clear, Normal Breath Sounds. negative: Respiratory Distress Cardiovascular: positive: Regular Rhythm, Regular Rate, S1, S2. negative: Murmur Gastrointestinal/Abdominal: positive: Tender (along suprapubic), Flat, Soft Musculoskeletal: negative: CVA Tenderness Neurologic: positive: Alert, Normal Mood/Affect Moderate Sedation - Procedure Monitoring Vital Signs: Procedure Monitoring Vital Signs Temperature 98.5 F 07/27/18 16:03 Pulse Rate 85 07/27/18 16:03 Respiratory Rate 18 07/27/18 16:03 Blood Pressure 139/79 07/27/18 16:03 O2 Sat by Pulse Oximetry (%) 100 07/27/18 16:03 ED Treatment Course - ADDITIONAL ORDERS Additional order review: Laboratory Results 07/27/18 16:17 Urine Color Yellow Urine Appearance Slcloudy Urine pH 5.0 Ur Specific [place] 1.012 Urine Protein 2+ H Urine Glucose (UA) Negative Urine Ketones Negative Urine Blood 3+ H Urine Nitrite Negative Urine Bilirubin Negative Urine Urobilinogen Negative Ur Leukocyte Esterase Negative Medical Decision Making - Medical Decision Making 38 y/o F with no sig pmh, recently had vaginal delivery 10 days ago presents with lower abdominal pain x 4-5 days along with dysuria. Has some mild vaginal spotting, but denies heavy vaginal bleeding. Denies fever, sob, cp, vomiting, diarrhea. Consider UTI UA/UCx sent from triage 07/27/18 16:50 UA negative Discussed with patient's CONTACT CENTER ASSOCIATE, Dr. Constantino - recommends pelvic US to r/o possible RPOC Motrin ordered for pain 07/27/18 17:01 Ultrasound shows small amount of nonspecific material within the endometrial canal - could be clotted blood vs RPOC Discussed with Dr. Constantino - recommends 0.2 mg Methergine IM x1 and have patient f/u in [facility] clinc on [address] [place] [address] Stable for d/c 07/27/18 18:35 *DC/Admit/Observation/Transfer Diagnosis at time of Disposition: Dysuria, Lower abdominal pain - Discharge Dispostion Disposition: HOME Condition at time of disposition: Stable Decision to Admit order: No - Referrals - Patient Instructions Additional Instructions: Thank you for choosing [facility]. It was a pleasure taking care of you. You may take Tylenol 650 mg or Motrin 600 mg every 6 hours by mouth as needed for mild to moderate pain. Take Motrin with food. Do not take more than 4000 mg of Tylenol in 1 day. You were found to have possible blood versus possible retained products of conception on your ultrasound. For this, you were given a medication to allow these products to pass. Please f/u in the [facility] clinic on [address] [place] [address] in 2 days. Return to the Emergency Department if your symptoms worsen or persist, you have fever, shortness of breath, chest pain, severe abdominal pain, vomiting, heavy vaginal bleeding or other concerning symptoms. - Post Discharge Activity
[2018-07-27] MEDS ORDERED: IBUPROFEN 600 MG TABLET (FP) PO ONE ×2 (16:59→17:07)
[2018-07-27] MEDS ORDERED: METHYLERGONOVINE MALEATE 0.2 MG/1 ML AMP IM ONE (18:32)
== END 2018-07-27 18:45 | disposition home or self-care (01) ==
LOC: JERFT 15:54
PROC: 3E023GC Introduction of Other Therapeutic Substance into Muscle, Percutaneous Approach (ICD-10-PCS; principal; 2018-07-27)
DX: O90.89 Other complications of the puerperium, not elsewhere classified (principal); R10.30 Lower abdominal pain, unspecified
CPT/HCPCS: 76856-TC; 81003; 81015; 87086; 96372; 99281-25

== ENCOUNTER 2018-08-31 04:53 | Day surgery (SDC) | payer OTHER ==
[2018-08-28 14:15] VITALS: BMI 40.7
[~2018-08-31 04:53] MED LIST: BUPIVACAINE HCL/PF (5 MG/ML) 30 ML VIAL IJ ONE
[2018-08-31] MEDS ORDERED: oxyCODONE HCL 5 MG TABLET PO PRN ×2 (10:23)
[2018-08-31] MEDS ORDERED: ONDANSETRON 4 MG/2 ML VIAL IVPUSH PRN (10:23)
[2018-08-31] MEDS ORDERED: LACTATED RINGERS SOLUTION 1,000 ML IV SCH (10:30)
[2018-08-31] MEDS ORDERED: MIDAZOLAM HCL 2 MG/2 ML SINGLE DOSE VIAL ONE (10:30)
[2018-08-31] MEDS ORDERED: BUPIVACAINE HCL/PF 0.5% (5MG/ML) 10 ML VIAL ONE (10:45)
--- NOTE | 2018-08-31 11:03 | HP ---
Admitting History and Physical - Admission Chief Complaint: Desires Sterilization History of Present Illness: 38yo here for tubal sterilization H/O x 7 No issues or concerns today. Still adamant about proceeding forward with tubal sterilization History Source: Patient Limitations to Obtaining History: Language Barrier - Past Medical History SURGICAL SERVICES ASST: No: Alzheimer's, CVA, Dementia, Migraine, Multiple Sclerosis, Peripheral Neuropathy, Parkinson's, Seizure, Syncope, TIA, Vertigo, Other Cardiovascular: No: AFIB, Aneurysm, Aortic Insufficiency, Aortic Stenosis, CAD, CHF, Deep Vein Thrombosis, HTN, Hyperlipdemia, DE, Mitral Insufficiency, Mitral Stenosis, Murmur, Pulmonary Hypertension, Other Pulmonary: No: Asthma, Bronchitis, Cancer, COPD, O2 Dependent, Pneumonia, Previously Intubated, Pulmonary Embolus, Pulmonary Fibrosis, Sleep Apnea, Other Gastrointestinal: No: Ascites, Cancer, Constipation, Crohn's Disease, Diverticulitis, Diverticulosis, Esophageal Varices, Gastritis, GERD, GI Bleed, Hemorrhoids, Hiatal Hernia, Inflamatory Bowel Disease, Irritable Bowel Disease, Pancreatitis, Peptic Ulcer Disease, Ulcerative Colitis, Other Hepatobiliary: No: Cirrhosis, Cholelithiasis, Cholecystitis, Choledocholithiasis , Hepatitis A, Hepatitis B, Hepatitis C, Other Renal/: Yes: Other (Proteinuria) ...LMP: 08/22/18 ...: No ...: 7 ...Para: 7 Heme/Onc: Yes: Anemia - Past Surgical History Past Surgical History: Yes: None - Smoking History Smoking history: Never smoked Have you smoked in the past 12 months: No - Alcohol/Substance Use Hx Alcohol Use: No History of Substance Use: reports: None - Social History Usual Living Arrangement: Yes: With Spouse ADL: Independent History of Recent Travel: No Home Medications - Allergies Allergies/Adverse Reactions: Allergies Allergy/AdvReac Type Severity Reaction Status Date / Time No Known Allergies Allergy Verified 08/28/18 14:21 - Home Medications Home Medications: Ambulatory Orders Ferrous Sulfate [Feosol] 325 mg PO DAILY 06/26/18 Ibuprofen [Motrin -] 600 mg PO QID PRN #28 tablet 08/31/18 Review of Systems - Review of Systems Constitutional: denies: No Symptoms, Chills, Diaphoresis, Fever, Lethargy, Loss of Appetite, Malaise, Night Sweats, Unintentional Wgt. Loss, Weakness, Other Cardiovascular: denies: No Symptoms, Chest Pain, Edema, Palpitations, Shortness of Breath, Other Respiratory: denies: No Symptoms, Cough, Exercise Intolerance, Hemoptysis, Orthopnea, PND, Snoring, SOB, SOB on Exertion, Wheezing, Other Gastrointestinal: denies: No Symptoms, Abdominal Pain, Bloating, Constipation, Diarrhea, Dysphagia, Indigestion, Melena, Nausea, Rectal Bleeding, Vomiting, Vomiting Blood, Other Physical Examination Vital Signs: Vital Signs Temperature 98.2 F 08/31/18 09:41 Pulse Rate 78 08/31/18 09:41 Respiratory Rate 20 08/31/18 09:41 Blood Pressure 120/79 08/31/18 09:41 O2 Sat by Pulse Oximetry (%) 98 08/31/18 09:42 Constitutional: Yes: Well Nourished, No Distress, Calm Eyes: Yes: WNL, Conjunctiva Clear, EOM Intact HENT: Yes: WNL, Atraumatic, Normocephalic Neck: Yes: WNL, Supple, Trachea Midline Cardiovascular: Yes: WNL, Regular Rate and Rhythm Respiratory: Yes: WNL, Regular, CTA Bilaterally Gastrointestinal: Yes: WNL, Normal Bowel Sounds Musculoskeletal: Yes: WNL Extremities: Yes: WNL Edema: No Integumentary: Yes: WNL Neurological: Yes: WNL, Alert, Oriented ...Motor Strength: WNL Psychiatric: Yes: WNL Problem List - Problems (1) Sterilization Code(s): Z30.2 - ENCOUNTER FOR STERILIZATION Assessment/Plan 38yo here for LSC salpingectomy for sterilization Previously counseled regarding contraception methods, of her own will requested tubal sterilization. Risk of procedure including bleeding, infection, injury to bladder, bowel, ovaries and ureters reviewed. Postoperative expectations including pain management reviewed (Ibuprofen) All questions answered; consent signed Proceed to OR for LSC salpingectomy Jeana Hairston MD
[2018-08-31] MEDS ORDERED: PROPOFOL 20 ML ONE ×2 (11:09)
[2018-08-31] MEDS ORDERED: LIDOCAINE HCL/PF 2% SDV 5ML VIAL ONE ×2 (11:09→11:37)
[2018-08-31] MEDS ORDERED: ROCURONIUM BROMIDE 50 MG/5 ML VIAL ONE (11:11)
[2018-08-31] MEDS ORDERED: DEXAMETHASONE SOD PHOSPHATE 4 MG/1 ML VIAL ONE (11:37)
[2018-08-31] MEDS ORDERED: GLYCOPYRROLATE 0.2 MG/1 ML VIAL ONE (11:37)
[2018-08-31] MEDS ORDERED: KETOROLAC TROMETHAMINE 30 MG/1 ML VIAL ONE (11:37)
[2018-08-31] MEDS ORDERED: NEOSTIGMINE METHYLSULFATE 0.5 MG/ML - 10 ML MDV ONE (11:38)
[2018-08-31] MEDS ORDERED: BUPIVACAINE HCL/PF (5 MG/ML) 30 ML VIAL IJ ONE ×2 (11:40)
[2018-08-31] MEDS ORDERED: ePHEDrine SULFATE 50 MG/1 ML AMPULE ONE ×2 (11:51)
[2018-08-31] MEDS ORDERED: PHENYLEPHRINE HCL 10 MG/1 ML SINGLE DOSE VIAL ONE (12:14)
--- NOTE | 2018-08-31 12:34 | OP ---
Operative Note - Note: Operative Date: 08/31/18 Pre-Operative Diagnosis: Desires Permanent sterilization Operation: Laparoscopic Bilateral Salpingectomy Findings: Normal tubes and ovaries bilaterally, paratubal cyst on the left fallopian tube Post-Operative Diagnosis: Same as Pre-op Surgeon: Jeana Hairston Parts Representative: Tyrell Fernandez Anesthesiologist/PHONE CIRCUIT OPERATOR: Crystal Izaguirre Anesthesia: General Specimens Removed: Bilateral Fallopian Tubes Estimated Blood Loss (mls): 25 Drains, Volume Out (mls): 400 (clear urine) Operative Report Dictated: Yes
--- NOTE | 2018-08-31 13:35 | OP ---
DATE OF OPERATION: 08/31/2018 PREOPERATIVE DIAGNOSIS: Desires permanent sterilization. POSTOPERATIVE DIAGNOSIS: Desires permanent sterilization. PROCEDURE: Laparoscopic bilateral salpingectomy. ANESTHESIA: General. SURGEON: Gabriela Mohr MD BORE MINER OPERATOR: TOMAS Edwards IV FLUIDS: Per Anesthesia record. ESTIMATED BLOOD LOSS: 25. URINE OUTPUT: 400 mL of clear urine. FINDINGS: Normal bilateral tubes and ovaries, right paratubal cyst, normal uterus. COMPLICATIONS: None. CONDITION: Stable to recovery. DESCRIPTION OF PROCEDURE: After the appropriate consents were signed, the patient was taken to the operating room where general anesthesia was administered. She was placed in lithotomy position. The abdomen was prepped and draped in a normal sterile fashion. A sterile Gibson catheter was inserted. Using 50% Marcaine, the umbilicus was injected with 3 mL of Marcaine. An incision was made to accommodate a 5-mm long port so that the camera could be inserted under direct visualization. The abdomen was then insufflated with gas. The patient was placed in Trendelenburg position. A left lower quadrant 5-mm port was then inserted under direct visualization, and a right lower quadrant 5-mm port was also inserted under direct visualization. Bowel was swept out of the pelvis. The left fallopian tube was then grasped, carried through to the fimbriated edges, which were noted to be normal. Using the LigaSure device, the tube was transected along the mesosalpinx until its insertion at the uterus where it was transected with the LigaSure device. The left lower quadrant port was used to remove the left fallopian tube. Attention was then paid to the right fallopian tube, which then was also transected along the mesosalpinx with a LigaSure device and then its insertion point to the uterus. The right fallopian tube was then removed through the right lower quadrant port. The stump sites were noted to be hemostatic. The left lower quadrant and right lower quadrant ports were then removed under direct visualization. No bleeding ensued. Upon removal of the port, attention was then paid to the umbilical port, which was then also removed. The port sites were then closed with 4-0 Biosyn. Sponge, lap, and needle counts were correct x3. The Gibson catheter was removed in the operating room. The patient then left the operating room in stable condition and sent to the recovery room. No antibiotics were given. GABRIELA MOHR MD [id number]
[2018-08-31 14:37] VITALS: TEMP 98
[2018-08-31] MEDS ORDERED: oxyCODONE HCL 5 MG TABLET ONE (14:45)
[2018-08-31] MEDS ORDERED: oxyCODONE HCL 5 MG TABLET PO ONE (14:45)
[2018-08-31 16:13] VITALS: BP 125/67; PULSE 87
--- NOTE | 2018-08-31 16:23 | SURG ---
Surgery Bag Making Machine Operator Note Bag Making Machine Operator: Tyrell Fernandez PA-C Date of Service: 08/31/18 Diagnosis: Voluntary sterilization Procedure: laproscopic bilateral salpingectomy I was present for the entirety of the operative procedure. For further detail, please refer to operative report. Visit type - Case Type Case Type: Scheduled - Emergency Emergency Visit: No - New patient This patient is new to me today: Yes Date on this admission: 08/31/18
--- NOTE | 2018-09-01 12:57 | PATH ---
Surgical Pathology Report Patient Name: FIDELIA HYDE [facility]. Rec. #: [id number] /Age/Gender: 1980 (Age: 38) / F Account: [id number] Location: [facility] SURGICAL Taken: 08/31/2018 Received: 08/31/2018 Reported: 09/01/2018 Physicians: Rene Bowden Specimen(s) Received A: LEFT FALLOPIAN TUBE B: RIGHT FALLOPIAN TUBE Clinical History Desires permanent sterilization 08/31/2018 Final Diagnosis A. LEFT FALLOPIAN TUBE, SALPINGECTOMY: FULL LUMINAL PORTION OF BENIGN FALLOPIAN TUBE INCLUDING FIMBRIATED END, WITH BENIGN PARATUBAL CYST. B. RIGHT FALLOPIAN TUBE, SALPINGECTOMY: FULL LUMINAL PORTION OF BENIGN FALLOPIAN TUBE INCLUDING FIMBRIATED END. Electronically Signed Cirilo Euceda M.D. Gross Description A. Received in formalin labeled "fallopian tube left," is a 7 cm in length fimbriated fallopian tube. The outer surface is serna-pink with 2 paratubal cysts attached to the fimbria, measuring 0.5 and 1.7 cm in greatest dimension. The outer surface of the fallopian tube is serna-pink and smooth. Sectioning reveals an unremarkable lumen. Medical Record Administrator sections are submitted in 2 cassettes as follows: 1-fimbria and paratubal cysts; 2-cross sections of fallopian tube. B. Received in formalin labeled "fallopian tube right," is a 6 cm in length fimbriated fallopian tube. The outer surface is piedra purple and smooth. Sectioning reveals an unremarkable lumen. Medical Record Administrator sections are submitted in 2 cassettes as follows: 1-fimbria; 2-cross sections of fallopian tube. 08/31/201808/31/2018
== END 2018-08-31 15:55 | disposition home or self-care (01) ==
LOC: JASU-SURG 04:53
PROVIDERS: ATTEND Obstetrics & Gynecology
PROC: 0U574ZZ Destruction of Bilateral Fallopian Tubes, Percutaneous Endoscopic Approach (ICD-10-PCS; principal; 2018-08-31 11:00)
DX: Z30.2 Encounter for sterilization (principal)
CPT/HCPCS: 84703; 88302-TC; 94760

== ENCOUNTER 2019-01-17 11:43 | Emergency (ER) | payer OTHER ==
[2019-01-17 11:51] VITALS: TEMP 98.7; BMI 41.2
--- NOTE | 2019-01-17 12:08 | PDOC ---
History of Present Illness - General History Source: Patient Exam Limitations: No Limitations - History of Present Illness Initial Comments: Pt is a 38 yo F, with PMH of anemia, who is presenting with complaints of "the room spinning" and chest "pinching" x3 days. Pt states the vertigo begins when she is turning from side to side while lying on the bed. The pt associates the chest pinching after "drinking water," but resolves after a few seconds. The chest pinching does not radiate, not associated with nausea/vomiting/diaphoresis /exertion, and has been intermittent. Pt also complains of recent lower abdominal cramping and vaginal spotting after intercourse. Pt denies any recent fevers/chills, headache, vision changes, falls, syncope, palpitations, SOB, nausea/vomiting, urinary symptoms, vaginal discharge, diarrhea/constipation, or leg swelling. Allergies: NKDA PCP: [facility] (in [place]) LMP 01/05 and was normal in duration and bleeding amount. Social: Pt denies any cigarette, alcohol, or drug use. Pt denies any recent travel or sick contacts. Surgical: tubal ligation August 2018. Family: grandfather with MD in 50s. 01/17/19 12:34 01/17/19 13:01 <Sarah Jasmine - Last Filed: 01/17/19 14:49> <Maryuri Leo - Last Filed: 01/17/19 14:59> - General Chief Complaint: Sore Throat Stated Complaint: DIZZYNESS Time Seen by Provider: 01/17/19 12:07 Past History - Travel Traveled outside of the country in the last 30 days: No Close contact w/someone who was outside of country & ill: No - Past Medical History Anemia: Yes Asthma: No Cancer: No Cardiac Disorders: No CVA: No COPD: No CHF: No Dementia: No Diabetes: No GI Disorders: No Disorders: No HTN: No Hypercholesterolemia: No Liver Disease: No Seizures: No Thyroid Disease: No - Surgical History Neurologic Surgery: (2018 low back surgery) Orthopedic Surgery: Yes (left ankle fracture) - Reproductive History (#): 6 Para: 5 Spontaneous : 0 - Suicide/Smoking/Psychosocial Hx Smoking History: Never smoked Have you smoked in the past 12 months: No Hx Alcohol Use: No Drug/Substance Use Hx: No Substance Use Type: None Hx Substance Use Treatment: No <Sarah Jasmine - Last Filed: 01/17/19 14:49> <Mckay eLoie Violeta - Last Filed: 01/17/19 14:59> - Past Medical History Allergies/Adverse Reactions: Allergies Allergy/AdvReac Type Severity Reaction Status Date / Time No Known Allergies Allergy Verified 01/17/19 11:51 Home Medications: Ambulatory Orders Meclizine HCl 25 mg PO BID PRN #14 tablet 01/17/19 Review of Systems - Review of Systems Able to Perform ROS?: Yes Is the patient limited Slovenian proficient: No Constitutional: Yes: Weight Stable. No: Chills, Diaphoresis, Fever, Loss of Appetite, Malaise, Weakness HEENTM: No: Blurred Vision, Double Vision, Nose Congestion, Tinnitus, Nose Bleeding, Hearing Loss, Throat Pain, Throat Swelling, Difficulty Swallowing Respiratory: No: Cough, Orthopnea, Shortness of Breath Cardiac (ROS): Yes: Chest Pain. No: Edema, Irregular Heart Rate, Lightheadedness, Palpitations, Syncope, Chest Tightness ABD/GI: Yes: Abdominal cramping. No: Constipated, Diarrhea, Nausea, Poor Appetite, Poor Fluid Intake, Rectal Bleeding, Vomiting : No: Burning, Dysuria, Frequency, Hematuria, Pain, Urgency Musculoskeletal: No: Back Pain, Joint Pain, Muscle Pain, Muscle Weakness Integumentary: No: Rash Neurological: Yes: See HPI, Dizziness (+vertigo). No: Headache, Numbness, Paresthesia, Weakness, Unsteady Gait, Ataxia Psychiatric: No: Sleep Pattern Change, Change in Appetite Endocrine: No: Increased Urine, Change in Weight Hematologic/Lymphatic: Yes: Anemia. No: Blood Clots, Easy Bleeding, Easy Bruising <Sarah Jasmine - Last Filed: 01/17/19 14:49> *Physical Exam - Vital Signs Last Vital Signs Temp Pulse Resp BP Pulse Ox 98.7 F 77 18 133/81 99 01/17/19 11:48 01/17/19 11:48 01/17/19 11:48 01/17/19 11:48 01/17/19 11:48 - Physical Exam Comments: Vitals stable, pt afebrile. Pt in NAD, obese body habitus. Pt alert and oriented x3. sandblaster stone generally intact, muscular strength and sensation intact. Cerebellar exam WNL. Saccade present to R horizontal field. Vertigo induced with looking towards the right. Petra maneuver to the right reduced pts symptoms. No midline spinal tenderness, step-offs, or crepitus. Head normocephalic, atraumatic. Eyes PERRLA, EOMI. Oropharynx without erythema or exudates, no LAD b/l. No nasal congestion, hearing intact. Clear heart sounds, S1/S2, no JVD, b/l pedal edema, or heart murmur. Clear lung sounds, no respiratory distress, wheezes, crackles, or accessory muscle use. Diffuse abdominal TTP, with no rebound or guarding. Abdomen soft, protuberant, and with normoactive bowel sounds. Pelvic exam showed physiologic discharge, cervix closed, no CMT or adnexal TTP. Skin without jaundice or rash. 01/17/19 13:07 01/17/19 13:27 <Sarah Jasmine - Last Filed: 01/17/19 14:49> - Vital Signs Last Vital Signs Temp Pulse Resp BP Pulse Ox 98.7 F 97 H 18 124/84 99 01/17/19 11:48 01/17/19 12:59 01/17/19 11:48 01/17/19 12:59 01/17/19 11:48 <Maryuri Leo - Last Filed: 01/17/19 14:59> ED Treatment Course - LABORATORY CBC & Chemistry Diagram: 01/17/19 12:40 01/17/19 12:40 <Sarah Jasmine - Last Filed: 01/17/19 14:49> - LABORATORY CBC & Chemistry Diagram: 01/17/19 12:40 01/17/19 12:40 - ADDITIONAL ORDERS Additional order review: Laboratory Results 01/17/19 01/17/19 01/17/19 12:40 12:30 12:30 Sodium 138 Potassium 4.2 Chloride 105 Carbon Dioxide 23 Anion Gap 10 BUN 29.2 H Creatinine 1.1 Est GFR (CKD-EPI)AfAm 72.73 Est GFR (CKD-EPI)NonAf 62.75 Random Glucose 94 Calcium 9.7 Magnesium 2.2 Total Bilirubin 0.5 AST 19 ALT 33 Alkaline Phosphatase 116 Creatine Kinase 49 Troponin I < 0.02 Total Protein 8.7 H Albumin 4.1 Urine Color Yellow Urine Appearance Cloudy Urine pH 5.0 Ur Specific [place] 1.019 Urine Protein 3+ H Urine Glucose (UA) Negative Urine Ketones Negative Urine Blood 3+ H Urine Nitrite Negative Urine Bilirubin Negative Urine Urobilinogen 0.2 Ur Leukocyte Esterase 1+ H Urine WBC (Auto) 6 Urine RBC (Auto) 58.1 Urine Casts (Auto) 15 U Epithel Cells (Auto) 2.6 Urine Bacteria (Auto) 12.7 Urine HCG, Qual Negative 01/17/19 12:40 RBC 4.31 MCV 86.3 MCHC 32.8 RDW 14.4 MPV 7.8 Neutrophils % 73.7 Lymphocytes % 15.9 D Monocytes % 5.7 Eosinophils % 3.7 Basophils % 1.0 - Medications Given in the ED: ED Medications Discontinued Medications Generic Name Dose Route Start Last Admin Trade Name Freq PRN Reason Stop Dose Admin Acetaminophen 1,000 mg 01/17/19 12:32 01/17/19 13:11 Ofirmev Injection - IVPB 01/17/19 12:33 1,000 mg ONCE ONE Administration Sodium Chloride 1,000 mls @ 1,000 mls/hr 01/17/19 12:29 01/17/19 13:11 Normal Saline - IV 01/17/19 13:28 1,000 mls/hr ASDIR STA Administration Meclizine HCl 25 mg 01/17/19 12:29 01/17/19 12:53 Antivert - PO 01/17/19 12:30 25 mg ONCE ONE Administration <Maryuri Leo - Last Filed: 01/17/19 14:59> Medical Decision Making - Medical Decision Making Pt was seen at bedside, also will be seen by attending Dr. Leo. Pt presenting with new-onset peripheral vertigo and chest "pinching". No FNDs or cerebellar findings to suggest central lesion requiring CT scan at this time. Will work-up for ACS, electrolyte imbalances. Pelvic exam and UA to evaluate for UTI, PID. Orthostatic vitals showed no orthostasis. Provided 1 L IV NS, 25 mg PO meclizine, and 1 g ofirmev for improvement of discomfort and vertigo. Will continue to reassess pt and monitor for symptomatic improvement. ECG: NSR, intervals WNL (HR 90, WI 164, QRS 82, QTc 455). TWIs in anterior leads , with no significant ST segment changes. No significant changes from prior ECG (01/2018). 01/17/19 13:09 Pelvic exam not concerning for PID. Sent G/C/trichomonas culture for follow-up. Pt can see outpatient school cafeteria cook (Dr. Hairston). CBC WNL CMP with mildly elevated BUN, likely pre-renal. Pt states feeling better after meclizine and IVF. Trop <.02 with no EKG changes, not likely ACS or cardiac in nature. 01/17/19 13:28 Pt improved after IVF and meclizine. Sent additional meclizine to pt pharmacy. Considering normal lab results, pt can be discharged to home with follow-up. Pt advised to follow-up with PCP in 1-2 days and has been referred to FLOORING SALES MANAGER. Strict return precautions provided with pt understanding. 01/17/19 14:49 <Sarah Jasmine - Last Filed: 01/17/19 14:49> *DC/Admit/Observation/Transfer - Discharge Dispostion Decision to Admit order: No <Sarah Jasmine - Last Filed: 01/17/19 14:49> <Maryuri Leo - Last Filed: 01/17/19 14:59> Diagnosis at time of Disposition: Vertigo, Atypical chest pain, Bleeding after intercourse, Dizziness - Discharge Dispostion Disposition: HOME Condition at time of disposition: Improved - Prescriptions Prescriptions: Meclizine HCl 25 mg PO BID PRN #14 tablet PRN Reason: Vertigo - Referrals Referrals: Shakila Mcmahon [Primary Care Provider] - Jeana Hairston MD [Staff Physician] - - Patient Instructions Printed Discharge Instructions: DI for Atypical Chest Pain, DI for Benign Paroxysmal Positional Vertigo Additional Instructions: You were seen in the ER today for dizziness and chest pain which improved after some medication. The results of your labs and imaging today were normal. Please follow-up with your primary care doctor and FLOORING SALES MANAGER (Dr. Hairston) within 1-2 days to discuss your visit and make sure your symptoms have improved. Please return to the ER if you have any worsening pain, development of fevers or chills, loss of consciousness, inability to tolerate food or fluids, or any other concerns. I have sent medications to your pharmacy. Please take these medications as prescribed. Usted fue visto hoy en la rosita de emergencias por mareos y dolor en el pecho que mejor despus de algunos medicamentos. Los resultados de cele laboratorios e imgenes de hoy fueron normales. Noni un seguimiento con lord mdico de atencin primaria y obstetra / gineclogo (Dr. Hairston) dentro de 1-2 trivedi para analizar lord visita y asegurarse de que cele sntomas hayan lori. Regrese a la rosita de emergencias si tiene un empeoramiento del dolor, desarrollo de fiebre o escalofros, prdida del conocimiento, incapacidad para tolerar alimentos o lquidos, o cualquier otra inquietud. He enviado medicamentos a tu farmacia. Por favor tome estos medicamentos marimar se los recetaron. Print Language: LAO - Post Discharge Activity
[2019-01-17] MEDS ORDERED: SODIUM CHLORIDE 1,000 ML IV STA (12:29)
[2019-01-17] MEDS ORDERED: MECLIZINE HCL 25 MG TABLET (FP) PO ONE (12:29)
[2019-01-17] MEDS ORDERED: ACETAMINOPHEN 1000 MG/100 ML VIAL (NON FORMULARY) IVPB ONE (12:32)
[2019-01-17] MEDS ORDERED: MECLIZINE HCL 25 MG TABLET (FP) ONE (12:48)
--- NOTE | 2019-01-17 12:54 | PDOC ---
Documentation entered by Debbi Napoles SCRIBE, acting as scribe for Maryuri Leo MD. Maryuri Leo MD: This documentation has been prepared by the Dony russ Mackenzie, SCRIBE, under my direction and personally reviewed by me in its entirety. I confirm that the documentation accurately reflects all work , treatment, procedures, and medical decision making performed by me. Attending Attestation - Resident Resident Name: KenroySarah - ED Attending Attestation I have performed the following: I have examined & evaluated the patient, The case was reviewed & discussed with the resident, I agree w/resident's findings & plan - HPI HPI: Patient is a 38 year old female with a significant PMH of baseline anemia who presents to the ED with new onset chest pain described as intermittent chest pinching localized to the center of her chest, and peripheral vertigo for the past 3 days. Patient states the chest pinching lasts for only a few seconds, is aggravated by drinking water and while lying flat. Patient denies any accompanying upper respiratory symptoms. Patient also notes some recent spotting during sex which is abnormal for her, as well as some abdominal pain. Denies fever, chills, SOB, palpitation, weakness, N, V, D, bladder and bowel problems, leg swelling, No sick contacts or travel. No new changes in medications. No suspicious food intake, no trauma or difficulty walking Allergies: NKDA Past Medical History: as documented in EMR/HPI Social history: Lives with family. No tobacco, ETOH or drug use. Surgical history: Tubal ligation (August 2018) Family history: Grandfather in 50's of [place] Meds: as documented in EMR Agree with the resident's HPI and PE as documented in the electronic medical record. 01/17/19 13:11 01/17/19 14:55 - Physicial Exam PE: NAD, well appearing, EOMI, PERRL, MMM, nl conjunctiva, anicteric; neck supple. lungs clear, RRR, abdomen soft nontender. obese, no peritoneal findings, no cvat. Back nontender. ESTRELLA x4, no focal neuro deficits. No peripheral edema. normal color for ethnicity, WWP. nystagmus resolved SILT in all extrem. 5/5 city controller, distal and prox strength in all extrem. ambulatory no cerebellar findings, finger to nose bilaterally equal and symmetric. speech clear. 01/17/19 13:12 01/17/19 14:56 - Medical Decision Making 01/17/19 12:53 See HPI for details. Prior notes reviewed, including admissions, discharges and consultations. Vital signs reviewed, wnl. Vital Signs Temp Pulse Resp BP Pulse Ox 98.7 F 77 18 133/81 99 01/17/19 11:48 01/17/19 11:48 01/17/19 11:48 01/17/19 11:48 01/17/19 11:48 DDX arrhythmia, NSTEMI, ACS, costochondritis, esophageal spasm, GERD, PE, dissection, viral syndrome, pleurisy, anemia, metabolic /electrolyte derangements, vertigo, BPPV; doubt central etiology. no ct imaging at this time. laboratory results and imaging reviewed, basic labs and lytes wnl, UA with some blood likely from postcoital bleeding doubt kidney stone/renal colic, as no flank tenderness pelvic exam by resident unremarkable, so unlikely pelvic, ovarian cyst or torsion. neg preg test. Cardiac panel_neg, reassuring EKG normal sinus rhythm at 90 bpm, no interval abnormalities, narrow QRS, ST and T wave segments and morphology normal. Nonspecific T wave abnormalities - unchanged from prior EKG in 2018. ED course -interventions: meclizine, IVF, feels much improved neuro intact, ambulatory comfortable with discharge and unremarkable workup Pt to be discharged in stable condition. Patient and family made aware of clinical impression, treatment recommendations and disposition plan, return precautions discussed (including but not limited to new or persistent/worsening symptoms, pain, fevers, or signs of infection, chest pain, respiratory distress , inability to tolerate oral intake, dehydration, syncope, or neurologic changes ). Follow up with PMD and/or specialist as recommended, follow up information provided, take medications as instructed for duration of time. continue with supportive care, avoid triggers and precipitants. All questions answered to patient's satisfaction and expressed understanding and comfort with this. At the time of discharge, the patient is alert, clinically improved, tolerating po and verbalizes understanding of instructions, satisfied with the care received and felt comfortable with the plan. Patient does not suffer from an acute life- threatening medical condition at this time and is safe for outpatient follow- up. 01/17/19 14:56
[2019-01-17 12:55] LABS: EOS % 3.7 % (0-4.5); HEMATOCRIT 37.2 % (32.4-45.2); HEMOGLOBIN 12.2 GM/dL (10.7-15.3); LYMPH % 15.9 % (8-40); MCH 28.3 pg (25.7-33.7); MCHC 32.8 g/dl (32.0-36.0); MEAN CELL VOLUME 86.3 fl (80-96); MEAN PLT VOLUME 7.8 fl (7.5-11.1); MONO % 5.7 % (3.8-10.2); NEUT % 73.7 % (42.8-82.8); RBC 4.31 M/mm3 (3.60-5.2); RDW 14.4 % (11.6-15.6); WHITE BLOOD COUNT 9.7 K/mm3 (4.0-10.0)
[2019-01-17 12:58] LABS: EPI CELLS 2.6 /HPF (0-5/HPF); HYALINE CASTS 15 /lpf (0-8); URINE APPEARANCE CLOUDY; URINE BACTERIA 12.7 /hpf (NEGATIVE); URINE BILIRUBIN NEGATIVE (NEGATIVE); URINE COLOR YELLOW; URINE GLUCOSE (UA) NEGATIVE (NEGATIVE); URINE KETONE NEGATIVE (NEGATIVE); URINE LEUK ESTERASE 1+ (NEGATIVE); URINE NITRITE NEGATIVE (NEGATIVE); URINE PROTEIN 3+ (NEGATIVE); URINE UROBILINOGEN 0.2 mg/dL (0.2-1.0); URINE WBC 6 /hpf (0-5)
[2019-01-17 12:59] LABS: PLATELET COUNT 373 K/MM3 (134-434)
[2019-01-17 13:01] VITALS: BP 124/84; PULSE 97
[2019-01-17 13:21] LABS: URINE RBC 58.1 /hpf (0-4)
[2019-01-17 13:26] LABS: ALBUMIN 4.1 g/dl (3.4-5.0); ALK PHOS 116 U/L (45-117); ANION GAP 10 MMOL/L (8-16); BILIRUBIN,TOTAL 0.5 mg/dL (0.2-1); BLOOD UREA NITROGEN 29.2 mg/dL (7-18); CALCIUM 9.7 mg/dL (8.5-10.1); CHLORIDE 105 mmol/L (98-107); CO2 23 mmol/L (21-32); CREATININE 1.1 mg/dL (0.55-1.3); GLUCOSE,RANDOM 94 mg/dL (74-106); MAGNESIUM 2.2 mg/dL (1.8-2.4); POTASSIUM 4.2 mmol/L (3.5-5.1); SGOT/AST 19 U/L (15-37); SGPT/ALT 33 U/L (13-61); SODIUM 138 mmol/L (136-145); TOT PROT 8.7 g/dl (6.4-8.2)
--- NOTE | 2019-01-18 11:14 | EKG ---
Test Reason : Blood Pressure : / mmHG Vent. Rate : 090 BPM Atrial Rate : 090 BPM P-R Int : 164 ms QRS Dur : 082 ms QT Int : 372 ms P-R-T Axes : -22 010 -02 degrees QTc Int : 455 ms NORMAL SINUS RHYTHM T WAVE ABNORMALITY, CONSIDER ANTERIOR ISCHEMIA ABNORMAL ECG WHEN COMPARED WITH ECG OF 18-JAN-2018 13:15, NO SIGNIFICANT CHANGE WAS FOUND Confirmed by MAEGAN GUSMAN MD ([id number]) on 01/18/2019 11:13:31 AM Referred By: Confirmed By:MAEGAN GUSMAN MD
== END 2019-01-17 15:30 | disposition home or self-care (01) ==
LOC: JERFT 11:43 → JER 11:43
PROC: 3E033NZ Introduction of Analgesics, Hypnotics, Sedatives into Peripheral Vein, Percutaneous Approach (ICD-10-PCS; principal; 2019-01-17)
PROC: 3E0337Z Introduction of Electrolytic and Water Balance Substance into Peripheral Vein, Percutaneous Approach (ICD-10-PCS; 2019-01-17)
DX: R07.89 Other chest pain (principal); R42 Dizziness and giddiness; N93.0 Postcoital and contact bleeding
CPT/HCPCS: 36415; 80053; 81003; 82550; 83735; 84484; 84703; 85025; 87086; 87491; 87591; 87661; 93005; 93010; 99283-25; J0131; J7030

== ENCOUNTER 2019-04-09 11:34 | Day surgery (SDC) | payer OTHER ==
[2019-04-08 17:58] VITALS: BMI 40.7
[~2019-04-09 11:34] MED LIST changes: +BETAMET ACET/BETAMET NA PH 30 MG/5 ML VIAL IJ ONE; -BUPIVACAINE HCL/PF (5 MG/ML) 30 ML VIAL IJ ONE; +BUPIVACAINE HCL/PF 0.25% (2.5MG/ML) 10 ML VIAL IJ ONE; +BUPIVACAINE HCL/PF 0.5% (5 MG/ML) 30 ML VIAL IJ ONE; +BUPIVACAINE HCL/PF 0.5% (5MG/ML) 10 ML VIAL IJ ONE; +IOHEXOL 180 MG/1 ML ML IJ ONE; +LIDOCAINE HCL 1%, 10 MG/ML (50 mL VIAL) IJ ONE
[2019-04-09] MEDS ORDERED: LIDOCAINE HCL 1%, 10 MG/ML (20ML VIAL) ONE (12:49)
[2019-04-09] MEDS ORDERED: BUPIVACAINE HCL/PF 0.25% (2.5MG/ML) 10 ML VIAL ONE (12:49)
[2019-04-09] MEDS ORDERED: BETAMET ACET/BETAMET NA PH 30 MG/5 ML VIAL ONE (12:51)
[2019-04-09] MEDS ORDERED: MIDAZOLAM HCL 2 MG/2 ML SINGLE DOSE VIAL ONE ×2 (12:56→13:15)
[2019-04-09] MEDS ORDERED: ACETAMINOPHEN 325 MG TABLET (FP) PO PRN (12:57)
[2019-04-09] MEDS ORDERED: ONDANSETRON 4 MG/2 ML VIAL IVPUSH PRN (12:57)
[2019-04-09] MEDS ORDERED: oxyCODONE HCL 5 MG TABLET PO PRN (12:57)
[2019-04-09] MEDS ORDERED: IOHEXOL 180 MG/1 ML ML IJ ONE ×3 (13:02→13:32)
[2019-04-09] MEDS ORDERED: LIDOCAINE HCL 1%, 10 MG/ML (50 mL VIAL) IJ ONE ×3 (13:02→13:32)
[2019-04-09] MEDS ORDERED: BETAMET ACET/BETAMET NA PH 30 MG/5 ML VIAL IM ONE ×3 (13:02→13:32)
[2019-04-09] MEDS ORDERED: ceFAZolin SODIUM 1 GM VIAL IVPB ONE (13:30)
[2019-04-09 15:32] VITALS: BP 113/77; PULSE 80; TEMP 97
--- NOTE | 2019-04-13 21:13 | PROC ---
Procedure Note Procedure: Date of service: 04/09/2019 Preoperative Diagnosis: Low back pain and lumbar radiculopathy on right /Left , s/p Back surgery. Postoperative Diagnosis: Same Procedure Performed: Lumbar Epidural Steroid Injection ( Caudal) on with dye under Fluoroscopy Anesthesia: Local / MAC Anesthesiologist: Procedure: I discussed with the patient in detail about the risks, benefits, and alternatives to treatment not only limited to infection, headache, numbness , weakness, and injury to nerves, blood vessels and muscles. The patient understood, agreed and signed the written consent. The patient was placed in the prone position with the head, abdomen and legs supported with the pillows. The lumbosacral area was prepped and draped with Betadine times three in a sterile fashion. Lumbar vertebrae were identified under the C-arm. At Scaral Hiatus, 3 ml of 1 % Lidocaine was infiltrated into the skin and subcutaneous tissue. A 3 inch, # gauge 18 Tuohy needle was advanced to the epidural space with loss of resistance technique under fluoroscopic guidance. Aspiration was negative for cerebrospinal fluid and blood. Catheter was introduced upto L5-S1 level .3ml of Omnipaque (radio-opaque dye) was injected to confirm the tip of the needle into epidural space and spread of dye. There was no CSF or vascular spread. The spread of dye was noted at L5-S1 Level . A solution of 2.5 ml of Celestone with 5 ml of 0.25% Marcaine and 7.5 ml of preservative-free Normal Saline and a total of 15 ml was injected slowly. Again 2 ml of dye was injected to see the flow of dye in epidural space which was spreaded above the L5-S1 level. While Tuohy needle was withdrawn 2.0 ml of 1 % Lidocaine was infiltrated. Bleeding was checked. Betadine was wiped off. A sterile bandage was placed. The patient tolerated the procedure well. There were no immediate complications. The patient was transferred to the recovery room. The patient was observed for some time and discharged as per ASU criteria. The patient was told to apply ice at the injection site. Follow up appointment was given and also call my office at [phone]. If there is any problem, call my office or report to Emergency Room. Andrey Amezcua M.D.
== END 2019-04-09 15:32 | disposition home or self-care (01) ==
LOC: JASU-SURG 11:34
PROVIDERS: ATTEND Physical Medicine & Rehabilitation
PROC: 3E0R33Z Introduction of Anti-inflammatory into Spinal Canal, Percutaneous Approach (ICD-10-PCS; 2019-04-09)
PROC: B01BYZZ Fluoroscopy of Spinal Cord using Other Contrast (ICD-10-PCS; 2019-04-09)
PROC: 3E0R3BZ Introduction of Anesthetic Agent into Spinal Canal, Percutaneous Approach (ICD-10-PCS; principal; 2019-04-09 10:00)
DX: M54.16 Radiculopathy, lumbar region (principal); M54.5 Low back pain; M96.1 Postlaminectomy syndrome, not elsewhere classified
CPT/HCPCS: 76000-TC-FY; 84703

== ENCOUNTER 2019-06-25 09:04 | Day surgery (SDC) | payer OTHER ==
[2019-06-24 16:12] VITALS: BMI 40.7
[2019-06-25] MEDS ORDERED: LIDOCAINE HCL 1%, 10 MG/ML (20ML VIAL) ONE ×2 (10:39→12:48)
[2019-06-25] MEDS ORDERED: MIDAZOLAM HCL 2 MG/2 ML SINGLE DOSE VIAL ONE ×2 (12:22→12:37)
[2019-06-25] MEDS ORDERED: PROPOFOL 20 ML ONE ×4 (12:22→13:29)
[2019-06-25] MEDS ORDERED: SUCCINYLCHOLINE CHLORIDE 200 MG/10 ML SYRINGE ONE (12:24)
[2019-06-25] MEDS ORDERED: ceFAZolin 2 GRAM PREMIX BAG IVPB ONE (12:34)
[2019-06-25] MEDS ORDERED: ceFAZolin SODIUM 1 GM VIAL ONE (12:34)
[2019-06-25] MEDS ORDERED: LIDOCAINE HCL 1%, 10 MG/ML (20ML VIAL) NR ONE (12:51)
[2019-06-25] MEDS ORDERED: BENZOIN/ALOE VERA/STORAX/TOLU 58 ML BOTTLE ONE (13:44)
[2019-06-25] MEDS ORDERED: PROMETHAZINE HCL 25 MG/1 ML VIAL IVPUSH PRN (14:23)
[2019-06-25] MEDS ORDERED: ONDANSETRON 4 MG/2 ML VIAL IVPUSH PRN (14:23)
[2019-06-25] MEDS ORDERED: oxyCODONE HCL 5 MG TABLET PO PRN (14:23)
[2019-06-25] MEDS ORDERED: LACTATED RINGERS SOLUTION 1,000 ML IV SCH (14:30)
[2019-06-25 14:38] VITALS: TEMP 98
[2019-06-25 15:18] VITALS: PULSE 88
[2019-06-25] MEDS ORDERED: oxyCODONE HCL 5 MG TABLET ONE ×2 (16:22→16:42)
[2019-06-25] MEDS ORDERED: KETOROLAC TROMETHAMINE 30 MG/1 ML VIAL ONE (17:42)
[2019-06-25 18:58] VITALS: BP 129/79
--- NOTE | 2019-06-29 23:23 | PROC ---
Procedure Note Procedure: Date of service: 06/25/2019 Preoperative Diagnosis: Failed Back Surgery Syndrome, Lumbar Radiculopathy, Lumbar Spinal Fusion Postoperative Diagnosis: Same Procedure Performed: 1) Insertion of spinal cord stimulator leads x 2 2) Fluoroscopic needle guidance 3) Initial programming of device Anesthesia: Local (1% Lidocaine )/MAC Anesthesiologist: Procedure: I discussed with the patient in detail about the risks, benefits and alternatives to treatment not only limited to infection, headache, numbness, weakness and injury to nerves, spinal cord, blood vessels and muscles. The patient understood, agreed and signed the written consent. The patient was positioned prone on the fluoroscopy table. The patient was prepped and draped in the usual sterile fashion using DuraPrep and a fenestrated drape. Routine vital sign monitors were applied and anesthesia was initiated. The patient remained conversant throughout the procedure. The area to be injected was determined using fluoroscopy. Local anesthetic was given by raising a skin wheal and going down to the hub of a 25-gauge 1.5-inch needle. The 25-gauge 3.5- inch needle was used to anesthetize down to just short of the ligamentum flavum to be entered. A 14-gauge Tuohy needle was then advanced to contact the right L1 -L2 level. It was walked off in a superior medial direction until it entered the epidural space using loss of resistance to saline and air. The high - frequency spinal cord stimulator lead was advanced through the Tuohy needle and directed to rest the tip at the T8. The same procedure was repeated in detail for the left side to insert a second lead within the epidural space to reside at T9 level. Lead position was confirmed both in AP and Lateral views under Fluoroscopy. The needles were withdrawn leaving the leads in place and were then secured to the patients skin using Stay-Fix adhesive bandages and Tegaderm. The patients back was cleaned. The patient was allowed to fully recover from anesthesia and taken to the recovery room in good position. The procedure was completed without complications and was tolerated well. The patient was monitored after the procedure. Stimulation programming and testing of the device was done in the recovery room by the device site safety representative. The patient (or responsible alliance party) was given post-procedure and discharge instructions to follow at home. The patient was discharged in stable condition. Pre-procedure pain score: 10/10. Post-procedure pain score: 7/10. A follow-up appointment was made. If there is any problem, call my office at [phone] or report to Emergency Room. Andrey Amezcua M.D.
== END 2019-06-25 18:20 | disposition home or self-care (01) ==
LOC: JASU-SURG 09:04
PROVIDERS: ATTEND Physical Medicine & Rehabilitation
PROC: BR17YZZ Fluoroscopy of Thoracic Spine using Other Contrast (ICD-10-PCS; 2019-06-25)
PROC: 4B01XVZ Measurement of Peripheral Nervous Stimulator, External Approach (ICD-10-PCS; 2019-06-25)
PROC: 01HY3MZ Insertion of Neurostimulator Lead into Peripheral Nerve, Percutaneous Approach (ICD-10-PCS; principal; 2019-06-25 11:00)
DX: M96.1 Postlaminectomy syndrome, not elsewhere classified (principal); M54.16 Radiculopathy, lumbar region; M54.5 Low back pain
CPT/HCPCS: 63650; C1897; 76000-TC-FY; 84703; 94760

== ENCOUNTER 2020-05-09 13:24 | Emergency (ER) | payer OTHER ==
[2020-05-09 13:40] VITALS: TEMP 97.6; BMI 27.4
[2020-05-09] MEDS ORDERED: SODIUM CHLORIDE 1,000 ML IV STA (14:06)
[2020-05-09] MEDS ORDERED: ONDANSETRON 4 MG/2 ML VIAL IVPUSH ONE (14:06)
[2020-05-09] MEDS ORDERED: ONDANSETRON 4 MG/2 ML VIAL ONE (14:15)
[2020-05-09 15:12] LABS: BASO % 0.9 % (0-2.0); EOS % 3.1 % (0-4.5); HEMATOCRIT 38.1 % (32.4-45.2); HEMOGLOBIN 12.7 GM/dL (10.7-15.3); LYMPH % 27.9 % (8-40); MCH 28.7 pg (25.7-33.7); MCHC 33.4 g/dl (32.0-36.0); MEAN PLT VOLUME 8.7 fl (7.5-11.1); MONO % 5.4 % (3.8-10.2); NEUT % 62.7 % (42.8-82.8); PLATELET COUNT 411 K/MM3 (134-434); RBC 4.43 M/mm3 (3.60-5.2); RDW 16.3 % (11.6-15.6); WHITE BLOOD COUNT 7.7 K/mm3 (4.0-10.0)
[2020-05-09 15:23] LABS: CHLORIDE 103 mmol/L (98-107); POTASSIUM 4.1 mmol/L (3.5-5.1); SODIUM 139 mmol/L (136-145)
[2020-05-09 15:25] LABS: CALCIUM 9.6 mg/dL (8.5-10.1)
[2020-05-09 15:26] LABS: ALBUMIN 4.2 g/dl (3.4-5.0); ANION GAP 10 MMOL/L (8-16); BLOOD UREA NITROGEN 23.1 mg/dL (7-18); CO2 26 mmol/L (21-32); GLUCOSE,RANDOM 85 mg/dL (74-106); LIPASE 303 U/L (73-393); MAGNESIUM 2.6 mg/dL (1.8-2.4)
[2020-05-09 15:29] LABS: CREATININE 0.9 mg/dL (0.55-1.3); SGOT/AST 13 U/L (15-37); SGPT/ALT 18 U/L (13-61)
[2020-05-09 15:30] LABS: BILIRUBIN,TOTAL 0.8 mg/dL (0.2-1); TOT PROT 9.2 g/dl (6.4-8.2)
[2020-05-09 15:32] LABS: ALK PHOS 86 U/L (45-117)
[2020-05-09] MEDS ORDERED: ACETAMINOPHEN 1000 MG/100 ML VIAL (NON FORMULARY) IVPB ONE (15:43)
[2020-05-09] MEDS ORDERED: ACETAMINOPHEN INJECTION 100 ML IVPB ONE (15:50)
[2020-05-09 16:20] LABS: EPI CELLS 3 /uL (0-25.1); HYALINE CASTS 1 /uL (0-3.1); PH,URINE 5.5 (5.0-8.0); URINE APPEARANCE CLEAR; URINE BACTERIA 21 /uL (0-1359); URINE BILIRUBIN NEGATIVE (NEGATIVE); URINE COLOR YELLOW; URINE GLUCOSE (UA) NEGATIVE (NEGATIVE); URINE KETONE TRACE (NEGATIVE); URINE LEUK ESTERASE NEGATIVE (NEGATIVE); URINE NITRITE NEGATIVE (NEGATIVE); URINE PROTEIN TRACE (NEGATIVE); URINE RBC 30 /uL (0-23.9); URINE UROBILINOGEN 0.2 mg/dL (0.2-1.0); URINE WBC 3 /uL (0-25.8)
[2020-05-09 17:03] LABS: HCG,QUALITATIVE URINE Negative
[2020-05-09] MEDS ORDERED: KETOROLAC TROMETHAMINE 30 MG/1 ML VIAL IVPUSH ONE (19:04)
[2020-05-09] MEDS ORDERED: SODIUM CHLORIDE 0.9% 500 ML INFUS.BAG IV ONE (19:04)
[2020-05-09] MEDS ORDERED: KETOROLAC TROMETHAMINE 30 MG/1 ML VIAL ONE (19:20)
[2020-05-09 19:59] VITALS: BP 113/71; PULSE 71
== END 2020-05-09 20:37 | disposition home or self-care (01) ==
LOC: JER 13:24
PROC: 3E033NZ Introduction of Analgesics, Hypnotics, Sedatives into Peripheral Vein, Percutaneous Approach (ICD-10-PCS; principal; 2020-05-09)
PROC: 3E033GC Introduction of Other Therapeutic Substance into Peripheral Vein, Percutaneous Approach (ICD-10-PCS; 2020-05-09)
PROC: 3E0337Z Introduction of Electrolytic and Water Balance Substance into Peripheral Vein, Percutaneous Approach (ICD-10-PCS; 2020-05-09)
DX: R10.32 Left lower quadrant pain (principal); R07.9 Chest pain, unspecified
CPT/HCPCS: 36415; 71275-TC; 74019-TC-FY; 74177-TC; 80053; 81003; 82550; 83690; 83735; 84484; 84703; 85025; 85379; 87086; 93005; 93010; 99285-25; J0131; Q9967

== ENCOUNTER 2020-12-05 10:59 | Emergency (ER) | payer OTHER ==
[2020-12-05] MEDS ORDERED: METOCLOPRAMIDE HCL INJECTION 10 MG/2 ML VIAL IVPB ONE (11:30)
[2020-12-05] MEDS ORDERED: LACTATED RINGERS SOLUTION 1000 ML INFUS.BAG IV ONE (11:30)
[2020-12-05] MEDS ORDERED: ACETAMINOPHEN 1000 MG/100 ML VIAL (NON FORMULARY) IVPB ONE (11:30)
[2020-12-05 11:35] VITALS: TEMP 98.4; BMI 27.4
[2020-12-05] MEDS ORDERED: METOCLOPRAMIDE HCL INJECTION 10 MG/2 ML VIAL ONE (11:53)
[2020-12-05] MEDS ORDERED: ACETAMINOPHEN INJECTION 100 ML IVPB ONE (11:54)
[2020-12-05 12:47] LABS: EOS % 3.7 % (0-4.5); HEMATOCRIT 30.6 % (32.4-45.2); HEMOGLOBIN 9.8 GM/dL (10.7-15.3); LYMPH % 20.9 % (8-40); MCH 26.9 pg (25.7-33.7); MCHC 31.9 g/dl (32.0-36.0); MEAN CELL VOLUME 84.1 fl (80-96); MEAN PLT VOLUME 7.3 fl (7.5-11.1); MONO % 5.4 % (3.8-10.2); PLATELET COUNT 407 10^3/uL (134-434); RBC 3.64 M/mm3 (3.60-5.2); RDW 14.9 % (11.6-15.6); WHITE BLOOD COUNT 6.5 K/mm3 (4.0-10.0)
[2020-12-05 12:52] LABS: INR 1.13 (0.83-1.09); PROTHROMBIN TIME (PATIENT) 13.8 SEC (9.7-13.0)
[2020-12-05 12:55] LABS: ACTIVATED PTT 29.6 SECONDS (25.2-36.5)
[2020-12-05 13:05] LABS: ALBUMIN 3.5 g/dl (3.4-5.0); BLOOD UREA NITROGEN 28.3 mg/dL (7-18); CALCIUM 8.8 mg/dL (8.5-10.1)
[2020-12-05 13:06] LABS: MAGNESIUM 2.1 mg/dL (1.8-2.4)
[2020-12-05 13:08] LABS: CREATININE 0.6 mg/dL (0.55-1.3)
[2020-12-05 13:10] LABS: BILIRUBIN,TOTAL 0.6 mg/dL (0.2-1); TOT PROT 7.8 g/dl (6.4-8.2)
[2020-12-05] MEDS ORDERED: MECLIZINE HCL 25 MG TABLET (FP) PO ONE (14:32)
[2020-12-05] MEDS ORDERED: MECLIZINE HCL 25 MG TABLET (FP) ONE (14:45)
[2020-12-05 15:36] VITALS: BP 115/75; PULSE 86
== END 2020-12-05 15:36 | disposition home or self-care (01) ==
LOC: JER 10:59
PROC: 3E0333Z Introduction of Anti-inflammatory into Peripheral Vein, Percutaneous Approach (ICD-10-PCS; principal; 2020-12-05)
PROC: 3E033GC Introduction of Other Therapeutic Substance into Peripheral Vein, Percutaneous Approach (ICD-10-PCS; 2020-12-05)
DX: G43.101 Migraine with aura, not intractable, with status migrainosus (principal)
CPT/HCPCS: 36415; 70450-TC; 71045-TC-FY; 80053; 82962; 83735; 84703; 85025; 85610; 85730; 86850; 86900; 86901; 93005; 93010; 99285-25; C9803; J0131; U0003; U0005

== ENCOUNTER 2022-10-28 04:13 | Day surgery (SDC) | payer OTHER ==
[2022-09-26 13:57] VITALS: BMI 33.3
[~2022-10-28 04:13] MED LIST changes: -BETAMET ACET/BETAMET NA PH 30 MG/5 ML VIAL IJ ONE; -BUPIVACAINE HCL/PF 0.25% (2.5MG/ML) 10 ML VIAL IJ ONE; -BUPIVACAINE HCL/PF 0.5% (5MG/ML) 10 ML VIAL IJ ONE; -IOHEXOL 180 MG/1 ML ML IJ ONE; +LIDOCAINE HCL 1% PRESERVATIVE FREE - 30ML VIAL IJ ONE; -LIDOCAINE HCL 1%, 10 MG/ML (50 mL VIAL) IJ ONE
[2022-10-28] MEDS ORDERED: LIDOCAINE HCL/PF 1% SDV 5ML VIAL ONE (07:35)
[2022-10-28] MEDS ORDERED: MIDAZOLAM HCL 2 MG/2 ML SINGLE DOSE VIAL ONE ×2 (13:35→13:38)
[2022-10-28] MEDS ORDERED: ONDANSETRON 4 MG/2 ML VIAL ONE (13:41)
[2022-10-28] MEDS ORDERED: ceFAZolin SODIUM 1 GM VIAL IVPB ONE (13:45)
[2022-10-28] MEDS ORDERED: BUPIVACAINE HCL/PF 0.5% (5 MG/ML) 30 ML VIAL IJ ONE (14:00)
[2022-10-28] MEDS ORDERED: LIDOCAINE HCL 1% PRESERVATIVE FREE - 30ML VIAL IJ ONE (14:00)
[2022-10-28] MEDS ORDERED: BENZOIN/ALOE VERA/STORAX/TOLU 58 ML BOTTLE ONE (14:19)
[2022-10-28 15:40] VITALS: BP 109/62; PULSE 66; RESP 20; TEMP 98.7
== END 2022-10-28 15:42 | disposition home or self-care (01) ==
LOC: JASU-SURG 04:13
PROVIDERS: ATTEND Physical Medicine & Rehabilitation
PROC: 00HU3MZ Insertion of Neurostimulator Lead into Spinal Canal, Percutaneous Approach (ICD-10-PCS; principal; 2022-10-28 13:00)
DX: M96.1 Postlaminectomy syndrome, not elsewhere classified (principal); M54.16 Radiculopathy, lumbar region; M48.061 Spinal stenosis, lumbar region without neurogenic claudication; M54.50 Low back pain, unspecified
CPT/HCPCS: 63650; C1778; 76000-TC-FY; 81025; C1897